=== PATIENT | female | born 1990 | race Caucasian/White ===

== ENCOUNTER → 2018-05-18 08:58 | Outpatient (CLI) | payer OTHER, SELFPAY ==
[2018-05-18 10:40] LABS: Absolute Lymphocyte Count 1.26 X10^3/ul (0.83-4.51); Absolute Neutrophil Count 5.8 X10^3/uL (2.0-7.7); Basophil# 0.03 X10^3/uL; Basophil% 0.4 % (0-1); Eosinophil# 0.15 X10^3/uL; Hematocrit 36.5 % (37-47); Hemoglobin 12.1 g/dl (12.0-15.0); Lymphocyte # 1.26 X10^3/ul (4.0); Lymphocyte % 16.6 % (19-41); Mean Corp Hgb Conc 33.2 g/gl (32-36); Mean Corpuscular Hgb 28.7 pg (27.0-32.0); Mean Corpuscular Volume 86.5 fL (81-99); Mean Platelet Vol. 12.1 fl (6.2-12.0); Monocyte# 0.35 X10^3/uL; Monocyte% 4.6 % (0-10); Neutrophil # 5.78 X10^3/uL (2.7-7.7); Neutrophil % 76.4 % (47-70); Platelet Count 176 K/mm3 (150-450); RBC Distribution Width CV 13.8 % (11.6-14.6); RBC Distribution Width SD 43.6 fl (35.1-43.9); Red Blood Count 4.22 M/mm3 (4.2-5.4); White Blood Count 7.6 K/mm3 (4.4-11.0)
[2018-05-18 10:41] LABS: POSITIVE COUNT NO; POSITIVE DIFFERENTIAL NO; POSITIVE MORPHOLOGY NO
[2018-05-18 11:05] LABS: Rubella IgG 57.7 IU/mL
[2018-05-18 21:28] LABS: Chlamydia Trachomatis by PCR Negative (Negative); Neisserai gonorrhoeae by PCR Negative (Negative); Probe Check PASS; Sample Adequacy Control PASS; Specimen Processing Control PASS
[2018-05-19 06:57] LABS: HEPATITIS B SURFACE AG Negative (Negative)
[2018-05-22 01:02] LABS: Rapid Plasmin Reagin (RPR) NONREACTIVE (NONREACTIVE)
[2018-05-22 11:32] LABS: HPV Reflexed? NOT INDICATED
== END ==
PROVIDERS: PCP Family Medicine; Visit Provider Obstetrics & Gynecology
DX: Z34.90 Encounter for supervision of normal pregnancy, unspecified, unspecified trimester (principal); Z12.4 Encounter for screening for malignant neoplasm of cervix
CPT/HCPCS: 36415; 85025; 86592; 86762; 86850; 86900; 87086; 87340; 87491; 87591; 88175; G0145

== ENCOUNTER → 2018-09-25 16:54 | Outpatient (CLI) | payer OTHER, SELFPAY ==
[2018-09-25 16:09] VITALS: BMI 25.2
[2018-09-25 17:34] LABS: Basophil# 0.03 X10^3/uL; Basophil% 0.2 % (0-1); Eosinophil# 0.21 X10^3/uL; Eosinophils% 1.7 % (0-5); Hematocrit 30.6 % (37-47); Hemoglobin 10.1 g/dl (12.0-15.0); Lymphocyte % 13.6 % (19-41); Mean Corpuscular Hgb 29.8 pg (27.0-32.0); Mean Corpuscular Volume 90.3 fL (81-99); Mean Platelet Vol. 11.4 fl (6.2-12.0); Monocyte# 0.53 X10^3/uL; Monocyte% 4.2 % (0-10); Neutrophil # 9.99 X10^3/uL (2.7-7.7); Platelet Count 155 K/mm3 (150-450); RBC Distribution Width CV 13.5 % (11.6-14.6); RBC Distribution Width SD 43.4 fl (35.1-43.9); Red Blood Count 3.39 M/mm3 (4.2-5.4); White Blood Count 12.5 K/mm3 (4.4-11.0)
[2018-09-25 17:45] LABS: POSITIVE COUNT NO; POSITIVE DIFFERENTIAL NO; POSITIVE MORPHOLOGY NO
[2018-09-25 17:51] LABS: Glucose Challenge Gest 1H 50g 182 mg/dL (70-140)
== END ==
PROVIDERS: Referring Provider Obstetrics & Gynecology; Visit Provider Obstetrics & Gynecology
DX: Z34.90 Encounter for supervision of normal pregnancy, unspecified, unspecified trimester (principal)
CPT/HCPCS: 36415; 82950; 85025; 86850; 86900

== ENCOUNTER 2018-10-22 17:00 | Outpatient (RCR) | payer OTHER, SELFPAY ==
[2018-09-25 16:09] VITALS: BMI 25.2
[2018-10-08 15:14] VITALS: BMI 25.2
== END 2018-11-05 23:59 ==
LOC: DC 17:00
PROVIDERS: PCP Family Medicine; Visit Provider Obstetrics & Gynecology
DX: O24.419 Gestational diabetes mellitus in pregnancy, unspecified control (principal)
CPT/HCPCS: 97802; G0108

== ENCOUNTER → 2018-11-23 17:00 | Outpatient (CLI) | payer OTHER, SELFPAY ==
[2018-11-23 16:04] VITALS: BMI 25.2
[2018-11-23 17:32] LABS: Absolute Lymphocyte Count 2.16 X10^3/ul (0.83-4.51); Absolute Neutrophil Count 8.5 X10^3/uL (2.0-7.7); Basophil# 0.03 X10^3/uL; Basophil% 0.2 % (0-1); Eosinophil# 0.34 X10^3/uL; Eosinophils% 2.8 % (0-5); Hematocrit 33.4 % (37-47); Hemoglobin 10.9 g/dl (12.0-15.0); Lymphocyte # 2.16 X10^3/ul (4.0); Lymphocyte % 17.9 % (19-41); Mean Corp Hgb Conc 32.6 g/gl (32-36); Mean Corpuscular Hgb 29.2 pg (27.0-32.0); Mean Corpuscular Volume 89.5 fL (81-99); Mean Platelet Vol. 11.7 fl (6.2-12.0); Monocyte# 0.95 X10^3/uL; Monocyte% 7.9 % (0-10); Neutrophil # 8.53 X10^3/uL (2.7-7.7); Neutrophil % 70.9 % (47-70); Platelet Count 144 K/mm3 (150-450); RBC Distribution Width CV 14.2 % (11.6-14.6); RBC Distribution Width SD 46.6 fl (35.1-43.9); Red Blood Count 3.73 M/mm3 (4.2-5.4); White Blood Count 12.1 K/mm3 (4.4-11.0)
[2018-11-23 17:33] LABS: POSITIVE COUNT NO; POSITIVE DIFFERENTIAL NO; POSITIVE MORPHOLOGY NO
== END ==
PROVIDERS: Nurse Practitioner Women's Health; Referring Provider Obstetrics & Gynecology; Visit Provider Obstetrics & Gynecology
DX: O99.013 Anemia complicating pregnancy, third trimester (principal); D64.9 Anemia, unspecified; Z3A.00 Weeks of gestation of pregnancy not specified
CPT/HCPCS: 36415; 85025; 87077; 87081; 87186

== ENCOUNTER → 2018-11-25 15:49 | Outpatient (CLI) | payer OTHER, SELFPAY ==
[2018-11-16 16:00] VITALS: BMI 25.2
[2018-11-23 16:04] VITALS: BMI 25.2
--- NOTE | 2018-11-25 15:51 | US_ITS ---
STUDY: SECOND AND THIRD TRIMESTER OBSTETRICAL ULTRASOUND - LIMITED REASON FOR EXAM: Female, 28 years old. Gestational diabetes LMP: PRIOR ULTRASOUND: None. TECHNIQUE: Transabdominal TECHNICAL QUALITY: Adequate. FINDINGS: There is a single intrauterine fetus. The fetus is in a cephalic presentation. There is demonstrated cardiac activity with a heart rate of 140 bpm. There is a normal amniotic fluid volume. The largest amniotic fluid pocket measures 3.1 x 2.4 cm. The amniotic fluid index (MARY) is 10.6 cm. The placenta is posterior and fundal There are Grade 2-3 placental changes. BIOMETRY: BPD: 9.1 cm: 37 weeks, 0 days HC: 32.4 cm: 36 weeks, 6 days AC: 32.03 cm: 36 weeks, 0 days FL: 7 cm: 36 weeks, 0 days Age by LMP: 36 weeks, 4 days. ALBARO by LMP: December 19 2018. age by prior US: weeks, days. ALBARO by prior US: . age by current US: 36 weeks, 4 days. ALBARO by current US: December 19, 2018. Estimated weight: 2861 grams, +/- 418 grams, 42 percentile. US/OB Limited With Biometrics IMPRESSION: Viable intrauterine gestation approximately 36-37 weeks gestational age demonstrated adequate growth Electronically Signed: Arsenio Shell MD at 22:57 EST , Service support ,
== END ==
PROVIDERS: Family Provider Family Medicine; PCP Family Medicine; Referring Provider Obstetrics & Gynecology; Visit Provider Obstetrics & Gynecology
DX: O24.419 Gestational diabetes mellitus in pregnancy, unspecified control (principal); Z3A.00 Weeks of gestation of pregnancy not specified
CPT/HCPCS: 76816

== ENCOUNTER 2018-12-21 07:00 | Inpatient (IN) | payer OTHER, SELFPAY ==
[2018-12-15 15:59] VITALS: BMI 26.9
[2018-12-21] MEDS: Lactated Ringers 1,000 ML 50 ML IV ×3 (07:33→23:43)
[2018-12-21 07:41] VITALS: BMI 28.3
[2018-12-21 07:46] LABS: Bedside Glucose 110 mg/dL (70-110)
[2018-12-21 07:58] LABS: Hematocrit 34.8 % (37-47); Hemoglobin 11.5 g/dl (12.0-15.0); Mean Corpuscular Volume 87.7 fL (81-99); Platelet Count 148 K/mm3 (150-450); RBC Distribution Width CV 14.2 % (11.6-14.6); RBC Distribution Width SD 45.8 fl (35.1-43.9); Red Blood Count 3.97 M/mm3 (4.2-5.4); White Blood Count 8.9 K/mm3 (4.4-11.0)
[2018-12-21 07:59] LABS: Scan Indicated on CBC? Y/N NO
[2018-12-21] MEDS: 0.9% Normal Saline 100 ML IV.SOLN. INTRA-UTER (08:06)
[2018-12-21] MEDS: Oxytocin 30 units/NS 500 ml 30 UNITS/500 ML IV.SOLN IV (08:10)
[2018-12-21 11:40] LABS: Bedside Glucose 89 mg/dL (70-110)
[2018-12-21 15:26] LABS: Bedside Glucose 70 mg/dL (70-110)
[2018-12-21 19:40] LABS: Bedside Glucose 101 mg/dL (70-110)
[2018-12-21] MEDS: 0.9% Saline Lock 10 ML Syringe IV (20:09)
[2018-12-21 20:46] LABS: Bedside Glucose 72 mg/dL (70-110)
[2018-12-21] MEDS: fentaNYL-bupivacaine (epidural) 100 ML BAG EPIDURAL (21:08)
[2018-12-21 21:35] LABS: Bedside Glucose 79 mg/dL (70-110)
[2018-12-21 22:35] LABS: Bedside Glucose 80 mg/dL (70-110)
[2018-12-21 23:51] LABS: Bedside Glucose 81 mg/dL (70-110)
--- NOTE | 2018-12-22 01:18 | HP.PCM_ITS ---
- Problem List (1) Anemia complicating , third trimester Status: Acute Comment: iron supplement, cbc q monthly (2) GBS (group B Streptococcus carrier), +RV culture, currently Status: Acute Comment: plan clindamycin (3) Gestational diabetes mellitus in third trimester Status: Acute Qualifiers: Comment: recommend growth us at 36 weeks, IOL by 40 weeks (4) Status: Acute Qualifiers: Comment: MFM Anatomy US-Normal, repeat US to complete anatomy was normal. 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 Is patient in pain?: No Allergies amoxicillin Allergy (Severe, Verified 12/15/18 15:58) rash Medications vitamin,calcium,bfqcxylu-lulo-rtuzm acid tablet 1 tab PO QDAY 05/18/18 [History Confirmed 12/08/18] blood sugar diagnostic strips See Dose Instructions .ROUTE .MEDSUPPLY #100 ea 09/26/18 [Rx Confirmed 12/08/18] blood-glucose meter See Dose Instructions .ROUTE .MEDSUPPLY #1 ea 09/26/18 [Rx Confirmed 12/08/18] Last Menstral Period: 03/23/18 Zika: Zika virus screening: Negative : No PFSH PFSH Family History Father Myocardial infarction Social History Smoking Status: Never smoker alcohol intake: never substance use type: does not use caffeine: Yes what type of physical activity do you participate in: walking seatbelt use: always do you feel safe at home: Yes additional social history: [place]- 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 OB Visit ALBARO Calculator Estimated Delivery Date 12/19/18 Based on LMP (certain) 03/14/18 Current WG 39w 3d Number 1 Expected Delivery Route/Plan Specific Issue/Plans flu vaccine: given tdap vaccine: given rhogam: given LARC form signed: declines labor support person: Villa pain management: epidural cut cord/dad catch: cord : yes PP control planned: [] discussed possible routes of delivery and associated risks: [] special requests: [] Initial Weight: 144 lb Date EGA Weight BP Urine Prot Glucose FHR FuHt Pres Mov CTX Dilation Effaced St Visit Note 05/18/18 9w 2d 144 lb 2 oz (+2 oz) 130/73 06/18/18 13w 5d 146 lb 4 oz (+2 lb 4 oz) 120/70 Negative Negative 160 no vb cramping, likely declines genetic screening, will check insurance 07/16/18 17w 5d 151 lb 6 oz (+7 lb 6 oz) 116/74 Negative Negative 150 no vb cramping 08/11/18 21w 3d 152 lb 4 oz (+8 lb 4 oz) 118/60 Negative Negative 155 22 Active absent no vb cramping 09/08/18 25w 3d 156 lb (+12 lb) 100/56 Negative Negative 150 25 Active absent no v blof good fm n oregular ctx 09/25/18 27w 6d 156 lb (+12 lb) 120/70 145 28 Active absent no vb lof good fm no regular ctx 10/08/18 29w 5d 158 lb (+14 lb) 122/78 Negative Negative 162 29 Active absent No VB, LOF. Reviewed BS: wnl. 10/20/18 31w 3d 161 lb (+17 lb) 116/58 Negative Negative 160 30 Active absent no vb lof good fm no regular ctx BS well controlled 11/03/18 33w 3d 165 lb (+21 lb) 118/70 Negative Negative 160 32 Active absent no vb lof good fm no regula rctx. BS reviewed 11/16/18 35w 2d 166 lb 6 oz (+22 lb 6 oz) 112/70 Negative Negative 150 35 Active absent no vb lof good fm no regular ctx bs well controlled check growth us next week 11/23/18 36w 2d 165 lb 2 oz (+21 lb 2 oz) 124/70 Negative Negative 148 36 Cephalic Active absent 0 -4 Doing well. BS well controlled. No VB, LOF 12/01/18 37w 3d 167 lb (+23 lb) 100/68 140 37 Cephalic Active absent no vb lof good fm n oregula cx bs reveiwed and WNL 12/08/18 38w 3d 167 lb (+23 lb) 120/78 Negative Negative 140 38 Cephalic Active absent 0.5 no vb lof good fm no regular ctx 12/15/18 39w 3d 169 lb 6 oz (+25 lb 6 oz) 132/80 Negative Negative 150 38 Cephalic Active absent 1 no vb lof good fm no regular ctx plan IOL friday 7 am pitocin and chow bulb Visit Notes Visit Date: 12/15/18 ??no vb lof good fm no regular ctx plan IOL friday 7 am pitocin and chow bulb ??Val Matias MD on 12/15/18 Visit Date: 12/08/18 ??no vb lof good fm no regular ctx ??Val Matias MD on 12/08/18 Visit Date: 12/01/18 ??no vb lof good fm n oregula cx bs reveiwed and WNL ??Val Matias MD on 12/01/18 Visit Date: 11/23/18 ??Doing well. BS well controlled. No VB, LOF ??IRINA Olivarez on 11/23/18 Visit Date: 11/16/18 ??no vb lof good fm no regular ctx bs well controlled check growth us next week ??Val Matias MD on 11/17/18 Visit Date: 11/03/18 ??no vb lof good fm no regula rctx. BS reviewed ??Val Matias MD on 11/03/18 Visit Date: 10/20/18 ??no vb lof good fm no regular ctx BS well controlled ??Val Matias MD on 10/20/18 Visit Date: 10/08/18 ??No VB, LOF. Reviewed BS: wnl. ??IRINA Olivarez on 10/08/18 Visit Date: 09/25/18 ??no vb lof good fm no regular ctx ??Val Matias MD on 09/25/18 Visit Date: 09/08/18 ??no v blof good fm n oregular ctx ??Val Matias MD on 09/08/18 Visit Date: 08/11/18 ??no vb cramping ??Val Matias MD on 08/11/18 Visit Date: 07/16/18 ??no vb cramping ??Val Matias MD on 07/16/18 Visit Date: 06/18/18 ??no vb cramping, likely declines genetic screening, will check insurance ??Val Matias MD on 06/18/18 Visit Date: 05/18/18 ??No visit notes to display ACOG First Trimester First Trimester: Desire for , Alcohol, Tobacco Cessation, Illicit/Recreational Drug/Substance Use, Intimate Partner Violence, Barriers to care, Unstable Housing, Communication Barriers, Environmental/Work Hazards, Anticipated Course of Care, Toxoplasmosis Precations, Use of Any medications, Sexual activity, Exercise, Dental Care, Sauna/Hot tub use, Seat Belt use, Childbirth classes/Hospital facilities, , Travel, Indications for US and Screening for Aneuploidy Diagnostics Diagnostics Labs Blood Type AB NEGATIVE 09/25/18 Antibody Screen NEGATIVE 09/25/18 Hct 33.4 % (37-47) L 11/23/18 Hgb 10.9 g/dl (12.0-15.0) L 11/23/18 Obstetrics Ultrasound 11/25/18 Glucose 1 Hr 50 gm 182 mg/dL (70-140) H 09/25/18 Details: HIV: Urine Culture: Sequential Screen: NIPT Screen: Results [id number] Office Urine Glucose Negative Last Edit by Suzette Shah on 12/15/18 16:01 Office Urine Protein Negative Last Edit by Suzette Shah on 12/15/18 16:01 Assessment & Plan Problems 1. TDAP and Rhogam given on 09/25 2. Rh negative state in antepartum period O26.899; Z67.91 rhogam given 3. GBS (group B Streptococcus carrier), +RV culture, currently O99.820 plan clindamycin 4. Diet controlled gestational diabetes mellitus (GDM) in third trimester O24.410 recommend growth us at 36 weeks, IOL by 40 weeks 5. Anemia complicating , third trimester O99.013 iron supplement, cbc q monthly 6. 39 weeks gestation of Z3A.39 MFM Anatomy US-Normal, repeat US to complete anatomy was normal. declined carrier, ntd, and genetic screening 7. Encounter for supervision of normal first in third trimester Z34.03 PRR ALBARO 12/19/18 girl Stefania [place] Weir Patient presents IOL, plan management for , pitocin/AROM after chow bulb. Pain management: plans epidural. GBS positive- give clindamycin. Management of any complications: bs q 4 hr latent and 1 hr active I have reviewed the [facility] and made any clinically relevant updates. Orders Orders: POC Urinalysis 2 Dip (Clinic) Today Coding Level of Care Code OB Routine Diagnoses TDAP and Rhogam given on 09/25 Rh negative state in antepartum period O26.899; Z67.91 GBS (group B Streptococcus carrier), +RV culture, currently O99.820 Diet controlled gestational diabetes mellitus (GDM) in third trimester O24.410 ??Gestational diabetes mellitus control: diet-controlled Anemia complicating , third trimester O99.013 39 weeks gestation of Z3A.39 ??Weeks of gestation: 39 weeks Encounter for supervision of normal first in third trimester Z34.03 ??Normal : normal first ??Trimester: third trimester
--- NOTE | 2018-12-22 01:38 | PCM.OB.VAG ---
- Problem List (1) Anemia complicating , third trimester Status: Acute Comment: iron supplement, cbc q monthly (2) GBS (group B Streptococcus carrier), +RV culture, currently Status: Acute Comment: plan clindamycin (3) Gestational diabetes mellitus in third trimester Status: Acute Qualifiers: Comment: recommend growth us at 36 weeks, IOL by 40 weeks (4) Status: Acute Qualifiers: Comment: MFM Anatomy US-Normal, repeat US to complete anatomy was normal. declined carrier, ntd, and genetic screening (5) Rh negative state in antepartum period Status: Acute Comment: rhogam given (6) Supervision of normal Status: Acute Qualifiers: Comment: PRR ALBARO 12/19/18 girl Stefania Villa (7) TDAP and Rhogam given on 09/25 Status: Acute Vaginal Delivery Maternal Presentation: Medically Indicated Induction iol [id number] Method of Induction: Pitocin, Cantrell Bulb Amniotic Membrane Rupture Type: Spontaneous Amniotic Fluid Description: Clear Final ALBARO: 12/19/18 Gestational age: 40 Weeks and 3 Days Date of Procedure: 12/22/18 Pre-Operative Diagnosis: [id number] Post-Operative Diagnosis: iol Surgery/ Procedure Performed: Spontaneous Vaginal Delivery Type of Anesthesia: Epidural Description of Procedure: Patient began pushing and delivered the head in the ANTON presentation. The head was delivered atraumatically . The anterior and posterior shoulders delivered without complication followed by the rest of the infant and the was placed on the maternal abdomen. Delayed cord clamping was employed for approximately 60 seconds. Cord was clamped and cut and gentle traction was applied to the cord and the placenta delivered spontaneously immediately following it was noted to be intact with three-vessel cord. The perineum and vagina were inspected and noted to have a second-degree perineal laceration that was repaired in the usual fashion. EBL was 500 cc, there was some uterine atony noted which was treated with bimanual massage and Methergine.. Patient and infant tolerated delivery well. Placenta Disposition: [facility] Estimated Blood Loss: 500 A gender: Female Episiotomy Description: None Laceration: Perineal Extension/lac, 2nd degree Medications given after delivery: IV Pitocin, IM Methergin Complications: - - Uterine atony
[2018-12-22 01:46] LABS: Bedside Glucose 101 mg/dL (70-110)
[2018-12-22 01:46] LABS: Bedside Glucose 109 mg/dL (70-110)
[2018-12-22 02:56] LABS: Bedside Glucose 99 mg/dL (70-110)
[2018-12-22 03:51] LABS: Bedside Glucose 99 mg/dL (70-110)
[2018-12-22] MEDS: Lactated Ringers 1,000 ML 50 ML IV (04:26)
[2018-12-22] MEDS: Oxytocin 30 units/NS 500 ml 30 UNITS/500 ML IV.SOLN 334 UNITS IV (05:01)
[2018-12-22] MEDS: Methylergonovine 0.2 MG/ML Ampul IM (05:04)
[2018-12-22] MEDS: Oxytocin 30 units/NS 500 ml 30 UNITS/500 ML IV.SOLN 167 UNITS IV (05:31)
[2018-12-22 05:56] LABS: Bedside Glucose 87 mg/dL (70-110)
[2018-12-22] MEDS: 0.9% Saline Lock 10 ML Syringe IV (06:35)
[2018-12-22 07:06] LABS: Bedside Glucose 85 mg/dL (70-110)
[2018-12-22] MEDS: Naproxen 250 MG Tablet PO ×2 (07:45→15:17)
[2018-12-22 08:00] VITALS: BP 110/60; PULSE 69; RESP 18; TEMP 36.9
[2018-12-22 12:00] VITALS: BP 117/73; PULSE 83; RESP 18; TEMP 36.9
[2018-12-22 15:48] VITALS: BP 108/70; PULSE 85; RESP 18; TEMP 36.8
[2018-12-22 19:45] VITALS: BP 108/66; PULSE 77; RESP 16; TEMP 36.8
[2018-12-22] MEDS: Dibucaine 30 GM Tube 1 APPLIC TOPICAL (20:00)
[2018-12-22] MEDS: Acetaminophen 500 MG Tablet 1000 MG PO (20:00)
[2018-12-23 00:25] VITALS: BP 100/54; PULSE 80; RESP 18; TEMP 37
[2018-12-23] MEDS: Naproxen 250 MG Tablet PO ×2 (00:34→09:03)
[2018-12-23 04:45] VITALS: BP 101/60; PULSE 70; RESP 16; TEMP 36.8
[2018-12-23 06:30] LABS: Bedside Glucose 60 mg/dL (70-110)
[2018-12-23 06:41] LABS: Bedside Glucose 83 mg/dL (70-110)
[2018-12-23 07:50] VITALS: BP 111/59; PULSE 89; RESP 14; TEMP 36.9; O2SAT 98
--- NOTE | 2018-12-23 08:17 | PCM.PN.OB ---
Subjective: doing well no complaints pain controlled no CP SOB N V ambulating well tolerating po lochia moderate, going well - Physical Exam General: Alert, Oriented x3 Abdomen: Soft, Non Tender, - - ff below u Vital Signs Temp Pulse Resp BP Pulse Ox 98.5 F 89 14 111/59 L 98 12/23/18 07:50 12/23/18 07:50 12/23/18 07:50 12/23/18 07:50 12/23/18 07:50 Oxygen Delivery Method Room Air Weight: 165 lb 5.547 oz Body Mass Index (BMI) 28.3 Intake and Output for Last 24 Hours 12/21/18 12/22/18 12/23/18 23:59 23:59 23:59 Intake Total 360 / 360 4181 / 4181 Output Total 1600 / 1600 1800 / 1800 Balance -1240 / -1240 2381 / 2381 Laboratory Tests Past 24 Hrs 12/22/18 06:55 Screen NEGATIVE Baby's Blood Type A POSITIVE Baby's PIERRE NEGATIVE POC Glucose 12/23/18 12/23/18 06:36 05:20 POC Glucose 83 60 L Medical Necessity - Tobacco Use Smoking Status: Never smoker Assessment/Plan All Active Problems (Last Reviewed 12/15/18 @ 15:58 by Suzette Shah) GBS (group B Streptococcus carrier), +RV culture, currently (Acute) TDAP and Rhogam given on 09/25 (Acute) Anemia complicating , third trimester (Acute) Gestational diabetes mellitus in third trimester (Acute) (Acute) Rh negative state in antepartum period (Acute) Supervision of normal (Acute) s/p PPD # 1 1. routine post delivery care 2. breast feeding- support given 3. rh negative 4. rubella immune 5. serum glucose WNL 6. home today
--- NOTE | 2018-12-23 08:19 | PCM.DCVAG ---
Additional Instructions: If you experience any of the following, contact your healthcare provider. Bleeding that soaks a pad every hour for 2 hours Fever 100.4 or higher Unrelieved incision or abdominal pain Swelling, redness, discharge or bleeding from your incision or episiotomy site Your incision begins to separate Problems urinating (including inability to urinate or burning while urinating). Visual changes Severe headache Flu-like symptoms Pain or redness in one of both of your breasts Pain, warmth, tenderness or swelling in your legs, especially the calf area Frequent nausea and vomiting Symptoms of depression or anxiety If you experience any of the following, call 911 or go to the nearest Emergency Room. Chest pain Problems breathing Seizure activity Partial or complete paralysis of a body part, slurred speech, weakness or drooping of the face, or a sudden inability to walk or hold your balance Allergies/Adverse Reactions: Allergies amoxicillin Allergy (Severe, Verified 12/21/18 08:42) rash Medications to take at Discharge vitamin,calcium,uuzmhryq-idai-qirib acid tablet 1 tab PO QDAY 05/18/18 blood-glucose meter See Dose Instructions .ROUTE .MEDSUPPLY #1 ea 09/26/18 Blood Sugar Diagnostic [Advanced Gluc Meter Test Strip] 0 .ROUTE .MEDSUPPLY 12/21/18 Ferrous Sulfate [Iron] 325 mg PO DAILY 12/21/18 Primary Care Physician: Marilee Faith [Primary Care Provider] - Test Results: Test results from this visit will be discussed in further detail at your follow-up appointment, if applicable.
--- NOTE | 2018-12-23 08:22 | DCINST_ITS ---
Additional Instructions: If you experience any of the following, contact your healthcare provider. * Bleeding that soaks a pad every hour for 2 hours * Fever 100.4 or higher * Unrelieved incision or abdominal pain * Swelling, redness, discharge or bleeding from your incision or episiotomy site * Your incision begins to separate * Problems urinating (including inability to urinate or burning while urinating). * Visual changes * Severe headache * Flu-like symptoms * Pain or redness in one of both of your breasts * Pain, warmth, tenderness or swelling in your legs, especially the calf area * Frequent nausea and vomiting * Symptoms of depression or anxiety If you experience any of the following, call 911 or go to the nearest Emergency Room. * Chest pain * Problems breathing * Seizure activity * Partial or complete paralysis of a body part, slurred speech, weakness or drooping of the face, or a sudden inability to walk or hold your balance Allergies/Adverse Reactions: Allergies amoxicillin Allergy (Severe, Verified 12/21/18 08:42) rash Medications to take at Discharge vitamin,calcium,wprmsvjg-wjhv-gadmc acid tablet 1 tab PO QDAY 05/18/18 blood-glucose meter See Dose Instructions .ROUTE .MEDSUPPLY #1 ea 09/26/18 Blood Sugar Diagnostic [Advanced Gluc Meter Test Strip] 0 .ROUTE .MEDSUPPLY 12/21/18 Ferrous Sulfate [Iron] 325 mg PO DAILY 12/21/18 Primary Care Physician: Marilee Faith [Primary Care Provider] - Test Results: Test results from this visit will be discussed in further detail at your follow- up appointment, if applicable.
== END 2018-12-23 14:10 | disposition home or self-care (01) | DRG 806 ==
PROVIDERS: Admitting Provider Obstetrics & Gynecology; Family Provider Family Medicine; PCP Family Medicine; Visit Provider Obstetrics & Gynecology
DX: O24.410 Gestational diabetes mellitus in pregnancy, diet controlled (principal); O36.0130 Maternal care for anti-D [Rh] antibodies, third trimester, not applicable or unspecified; Z37.0 Single live birth; O62.2 Other uterine inertia; O99.013 Anemia complicating pregnancy, third trimester; D64.9 Anemia, unspecified; O42.02 Full-term premature rupture of membranes, onset of labor within 24 hours of rupture; O70.1 Second degree perineal laceration during delivery; O99.824 Streptococcus B carrier state complicating childbirth; Z3A.40 40 weeks gestation of pregnancy
CPT/HCPCS: 59025; 59050; 82962; 85027; 85461; 86850; 86900; 90384; 99218; J7120; A4216; G0378; J2790

== ENCOUNTER → 2020-11-23 14:41 | Outpatient (CLI) | payer OTHER, SELFPAY ==
[2020-11-23 13:52] VITALS: BMI 26.8
[2020-11-23 15:27] LABS: Absolute Lymphocyte Count 1.54 X10^3/uL (0.83-4.51); Basophil# 0.04 X10^3/uL; Basophil% 0.4 % (0-1); Eosinophil# 0.19 X10^3/uL; Eosinophils% 2.1 % (0-5); Hematocrit 34.3 % (37-47); Hemoglobin 11.5 g/dL (12.0-15.0); Lymphocyte # 1.54 X10^3/ul (4.0); Lymphocyte % 16.9 % (19-41); Mean Corp Hgb Conc 33.5 g/dL (32-36); Mean Corpuscular Hgb 29.8 pg (27.0-32.0); Mean Corpuscular Volume 88.9 fL (81-99); Mean Platelet Vol. 11.7 fl (6.2-12.0); Monocyte# 0.33 X10^3/uL; Monocyte% 3.6 % (0-10); NRBC Flagged by Analyzer 0 % (0-5); Neutrophil # 6.96 X10^3/uL (2.7-7.7); Neutrophil % 76.6 % (47-70); Platelet Count 192 K/mm3 (150-450); RBC Distribution Width CV 13.3 % (11.6-14.6); RBC Distribution Width SD 43.1 fl (35.1-43.9); Red Blood Count 3.86 M/mm3 (4.2-5.4); White Blood Count 9.1 K/mm3 (4.4-11.0)
[2020-11-23 15:55] LABS: Glucose Challenge Gest 1H 50g 195 mg/dL (70-140)
[2020-11-23 17:35] LABS: Amphetamine Urine VISTA NEGATIVE (<1000 ng/mL); Barbiturate Urine VISTA NEGATIVE (< 200 ng/mL); Benzodiazepine Urine VISTA NEGATIVE (< 200 ng/mL); Cocaine Urine VISTA NEGATIVE (< 300 ng/mL); Ecstacy Urine VISTA NEGATIVE (< 500 ng/mL); Methadone Urine VISTA NEGATIVE (< 300 ng/mL); PCP Urine VISTA NEGATIVE (< 25 ng/mL); THC Urine VISTA NEGATIVE (< 50 ng/mL); Vista UDS pH Range 6
[2020-11-24 11:28] LABS: HIV - WCH Non-Reactive (Nonreactive); Hepatitis B Surface Antigen Non-Reactive (Nonreactive); Hepatitis C Antibody Non-Reactive (Nonreactive); Rubella IgG Reactive (Nonreactive)
[2020-11-27 09:25] LABS: Syphilis Antibodies Non-reactive
[2020-11-28 03:06] LABS: Chlamydia By Nucleic Acid AMP Negative (Negative)
[2020-11-28 09:17] LABS: Gonococcus By Nucleic Acid AMP Negative (Negative)
[2020-11-28 20:13] LABS: HPV APTIMA, High Risk Negative (Negative)
== END ==
PROVIDERS: PCP Family Medicine; Referring Provider Obstetrics & Gynecology; Visit Provider Obstetrics & Gynecology
DX: Z34.80 Encounter for supervision of other normal pregnancy, unspecified trimester (principal); Z86.32 Personal history of gestational diabetes
CPT/HCPCS: 36415; 80307; 82950; 85025; 86592; 86703; 86762; 86803; 86850; 86900; 86901; 87086; 87340; 87491; 87591; 87624; 88175; G0145

== ENCOUNTER → 2021-04-16 14:24 | Outpatient (CLI) | payer OTHER, SELFPAY ==
[2021-04-16 13:49] VITALS: BMI 25.9
[2021-04-16 14:45] LABS: Absolute Lymphocyte Count 1.65 X10^3/uL (0.83-4.51); Absolute Neutrophil Count 7.7 X10^3/uL (2.0-7.7); Basophil# 0.03 X10^3/uL; Basophil% 0.3 % (0-1); Eosinophil# 0.19 X10^3/uL; Eosinophils% 1.9 % (0-5); Lymphocyte # 1.65 X10^3/ul (0.83-4.51); Lymphocyte % 16.2 % (19-41); Mean Corp Hgb Conc 33.3 g/dL (32-36); Mean Corpuscular Hgb 29.4 pg (27.0-32.0); Mean Corpuscular Volume 88.2 fL (81-99); Mean Platelet Vol. 11.5 fl (6.2-12.0); Monocyte# 0.51 X10^3/uL; NRBC Flagged by Analyzer 0 % (0-5); Neutrophil # 7.73 X10^3/uL (2.7-7.7); Neutrophil % 76.1 % (47-70); Platelet Count 172 K/mm3 (150-450); RBC Distribution Width CV 13.7 % (11.6-14.6); RBC Distribution Width SD 44.4 fl (35.1-43.9); Red Blood Count 3.74 M/mm3 (4.2-5.4); White Blood Count 10.2 K/mm3 (4.4-11.0)
== END ==
PROVIDERS: PCP Family Medicine; Referring Provider Obstetrics & Gynecology; Visit Provider Obstetrics & Gynecology
DX: O26.899 Other specified pregnancy related conditions, unspecified trimester (principal); Z67.91 Unspecified blood type, Rh negative; Z3A.00 Weeks of gestation of pregnancy not specified
CPT/HCPCS: 36415; 85025; 86850; 86900; 86901

== ENCOUNTER → 2021-04-30 14:20 | Outpatient (CLI) | payer OTHER, SELFPAY ==
[2021-01-19 13:57] VITALS: BMI 25.7
[2021-04-16 13:49] VITALS: BMI 25.9
--- NOTE | 2021-04-30 14:26 | US_ITS ---
STUDY: SECOND AND THIRD TRIMESTER OBSTETRICAL ULTRASOUND - LIMITED REASON FOR EXAM: Female, 30 years old growth at 32 weeks (week of 04/29/21) LMP: 09/16/2020. PRIOR ULTRASOUND: None. TECHNIQUE: Transabdominal TECHNICAL QUALITY: Adequate. FINDINGS: There is a single intrauterine fetus. The fetus is in a breech presentation. There is demonstrated cardiac activity with a heart rate of 141 bpm. There is a normal amniotic fluid volume. The largest amniotic fluid pocket measures 3.95 cm. The amniotic fluid index (MARY) is 12.27 cm. The placenta is posterior in location and is not low lying. There are Grade 1 placental changes. The cervix measures 3.3 cm in length. BIOMETRY: BPD: 8.25 cm: 33 weeks, 1 days HC: 30.55 cm: 34 weeks, 0 days AC: 28.92 cm: 32 weeks, 3 days FL: 6.01 cm: 31 weeks, 1 days Age by LMP: 32 weeks, 2 days. ALBARO by LMP: 06/23/2021. age by current US: 32 weeks, 6 days. ALBARO by current US: 06/19/2021. Estimated weight: 1946 grams, +/- 292 grams, 40 percentile. US/OB Limited With Biometrics IMPRESSION: Single live intrauterine gestation with a mean gestational age of 32 weeks and 6 days. Electronically Signed: Tyree Geronimo MD at 20:29 EDT , Service support ,
== END ==
PROVIDERS: PCP Family Medicine; Referring Provider Obstetrics & Gynecology; Visit Provider Obstetrics & Gynecology
DX: O24.419 Gestational diabetes mellitus in pregnancy, unspecified control (principal); Z3A.32 32 weeks gestation of pregnancy
CPT/HCPCS: 76816

== ENCOUNTER → 2021-05-28 16:31 | Outpatient (CLI) | payer OTHER, SELFPAY ==
[2021-01-19 13:57] VITALS: BMI 25.7
--- NOTE | 2021-05-28 16:35 | US_ITS ---
STUDY: SECOND AND THIRD TRIMESTER OBSTETRICAL ULTRASOUND - LIMITED REASON FOR EXAM: Female, 30 years old. MARY only. LMP: 09/16/2020. PRIOR ULTRASOUND: 04/30/2021. TECHNIQUE: Transabdominal TECHNICAL QUALITY: Adequate. FINDINGS: There is a single intrauterine fetus. The fetus is in a cephalic presentation. There is demonstrated cardiac activity with a heart rate of 148 bpm. There is a normal amniotic fluid volume. The largest amniotic fluid pocket measures 4.08 cm. The amniotic fluid index (MARY) is 9.2 cm. The placenta is fundal and posterior and not low-lying. There are Grade 2 placental changes. The cervix measures 3 cm in length. Age by LMP: 36 weeks, 2 days. ALBARO by LMP: 06/23/2021. age by prior US: 36 weeks, 6 days. ALBARO by prior US: 06/19/2021. US/OB Limited (No Biometrics) IMPRESSION: 1. MARY of 9.2 cm. 2. Single intrauterine in a vertex presentation. 3. heart rate 148 bpm. 4. Fundal and posterior grade 2 placenta. Electronically Signed: Kirit Laughlin DO at 17:57 EDT Tel [phone], Service support ,
== END ==
PROVIDERS: Referring Provider Obstetrics & Gynecology; Visit Provider Obstetrics & Gynecology
DX: O24.419 Gestational diabetes mellitus in pregnancy, unspecified control (principal); Z3A.00 Weeks of gestation of pregnancy not specified
CPT/HCPCS: 76815

== ENCOUNTER → 2021-05-28 17:14 | Outpatient (CLI) | payer OTHER, SELFPAY | PROVIDERS: Visit Provider Obstetrics & Gynecology | DX: Z34.90 Encounter for supervision of normal pregnancy, unspecified, unspecified trimester (principal) | CPT/HCPCS: 87081 ==

== ENCOUNTER 2021-06-19 08:08 | Inpatient (IN) | payer OTHER, SELFPAY ==
[2021-06-19] VITALS (57 sets, daily range): BP systolic 103–134; BP diastolic 52–83; PULSE 52–107; TEMP 36.3–36.9; O2SAT 83–100; BMI 28.2
--- NOTE | 2021-06-19 07:12 | HP.PCM_ITS ---
History and Physical Date of Admission: 06/19/21 [facility] 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 Is patient in pain?: No Allergies amoxicillin Allergy (Severe, Verified 06/14/21 15:50) rash Medications ferrous sulfate 325 mg (65 mg iron) tablet 325 mg PO DAILY 11/14/20 [History Confirmed 06/14/21] multivitamin no.47-iron fum 27 mg-folate no.1 1 mg-dha 300 mg capsule cap PO 11/14/20 [History Confirmed 06/14/21] blood sugar diagnostic #150 each 12/19/20 [Rx Confirmed 06/14/21] Last Menstral Period: 09/16/20 Zika: Zika virus screening: Negative : No PFSH PFSH Medical History History of gestational diabetes Family History Father Myocardial infarction Social History adopted: No household members: family housing: house number of children: 1 current occupational status: employed Smoking Status: Never smoker second hand exposure: No alcohol intake: never substance use type: does not use caffeine: Yes what type of physical activity do you participate in: walking seatbelt use: always do you feel safe at home: Yes additional social history: 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 Pregancy History 2 Elective abortions Hx Para 1 Spontaneous abortions Hx # Term Pregnancies Ectopic pregnancies Hx # Pregnancies Multiple births # of living children 1 Past Pregnancies Del. Date Name GA/Weeks Outcome Route Bth Weight Gen Labor Lgth Anesthesia Del Locatn Provider FOB 12/22/18 ALLY 40 live - full term 7lbs 6oz Female 4.5 hours epidural [facility] Delivery Date: 12/22/18 GDMA; 2nd degree laceration; uterine atony Wendy Loo HPI 38WK OB / NST Details: TIM MEDINA is a 30 year old who presents for IOL sec GDMA1 controlled OB Visit ALBARO Calculator Estimated Delivery Date Method Current WG Current Estimate 06/23/21 LMP (Certain) 39w 1d Other Estimates 06/27/21 Ultrasound #1 38w 4d Expected Delivery Route/Plan Labor Preferences- CB/BF classes: no labor support person: Villa labor intervention preferences: [] pain management options preferred: epidural cut cord/dad catch: cord : yes PP control planned: condom discussed possible routes of delivery and associated risks: [] special requests: [] Specific Issue/Plans flu vaccine: given tdap vaccine: given rhogam: given LARC form signed: yes Problem list reviewed and updated with the most current plan of care details and appropriate orders placed. Relevant counseling for the gestational age provided. Continue routine care and follow up unless otherwise noted in visit notes/problem list details Initial Weight: 165 lb Date EGA Weight BP Urine Prot Glucose FHR FuHt Pres Dilation Effaced St Visit Note 11/23/20 9w 5d 166 lb 4 oz (+1 lb 4 oz) 130/84 185 SM- CRL cons with Lmp SM- CRL 2cm cons with Lmp 12/22/20 13w 6d 162 lb 6 oz (-2 lb 10 oz) 128/68 Negative Negative 168 GP - no cramping or bleeding. Anatomy scan ordered. 01/19/21 17w 6d 162 lb (-3 lb) 110/82 Negative Negative 150 SM- BS well controlled with diet. no vb crakping SM- BS well controlled with diet. no vb cramping 02/12/21 21w 2d 163 lb 8 oz (-1 lb 8 oz) 110/68 Negative Negative 155 GP - no ctx, LOF, VB, DFM. BGTs controlled. Awaiting anatomy report, but was told normal aside from need f/u spine views 03/12/21 25w 2d 163 lb (-2 lb) 124/70 Negative Negative 155 25 SM- no vb lof good fm no regular ctx. cbc and t and s rhrogam next visit. SM- no vb lof good fm no regular ctx. cbc and t and s rhrogam next visit. 03/29/21 27w 5d 167 lb (+2 lb) 120/84 Negative Negative 150 27 Sm- no vb lof good fm no regular ctx going [place] next [place], [place]. 04/16/21 30w 2d 169 lb (+4 lb) 120/74 Negative Negative 145 30 SM- no vb lof good fm no regular ctx. t and s and rhogam today 04/30/21 32w 2d 171 lb (+6 lb) 140 32 SM- no vb lof good fm no regular ctx 05/07/21 33w 2d 178 lb (+13 lb) 118/64 140 MH-NST only reactive 05/14/21 34w 2d 176 lb 8 oz (+11 lb 8 oz) 112/68 Negative Negative 145 MH-No Vb, LOF. Good FM. Reactive NST. No CTX. Sugars well controlled 05/21/21 35w 2d 177 lb 7 oz (+12 lb 7 oz) 120/74 Negative Negative MH NST only reactive 05/28/21 36w 2d 178 lb (+13 lb) 120/82 Negative Negative 140 SM- BS WNL no vb lof good fm no reulga rctx gbs done 06/04/21 37w 2d Negative Negative 130 SM- BS controlled no vb lof good fm no regular ctx 06/14/21 38w 5d 180 lb (+15 lb) 98/62 ACOG First Trimester First Trimester: Desire for , Alcohol, Tobacco Cessation, Illicit/Recreational Drug/Substance Use, Intimate Partner Violence, Barriers to care, Unstable Housing, Communication Barriers, Environmental/Work Hazards, Anticipated Course of Care, Toxoplasmosis Precations, Use of Any medications, Sexual activity, Exercise, Dental Care, Sauna/Hot tub use, Seat Belt use, Childbirth classes/Hospital facilities, Travel, Indications for Ul trasound and Screening for Aneuploidy; Discussed Second Trimester Second Trimester: Signs and Symptoms of Labor, Selecting a care provider, Reproductive Life Planning & Contreception, Care Planning, Depression/Anxiety and Intimate Partner Violence; Discussed Tobacco Cessation Third Trimester Third Trimester: Pain Management Plans, Labor support person(s), Immediate Larc, Circumcision preference and Signs and Symptoms of Preeclampsia Diagnostics Diagnostics Diagnostics: No Data to Display Details: HIV: Urine Culture: Sequential Screen: NIPT Screen: ROS Const Reports system reviewed and no additional complaints, except as documented Card Reports system reviewed and no additional complaints, except as documented Resp Reports system reviewed and no additional complaints, except as documented GI Reports system reviewed and no additional complaints, except as documented and Reports nausea Reports system reviewed and no additional complaints, except as documented Musc Reports system reviewed and no additional complaints, except as documented Exam Const General: cooperative, healthy appearing, comfortable and anxious HENMT Head: normal to inspection Nose: external nose normal Face and sinus: normal facial exam Neck Neck: normal visual inspection, full ROM and no lymphadenopathy Thyroid: thyroid normal Chest Chest palpation & inspection: normal inspection of the chest Resp Effort & Inspection: normal respiratory effort GI Inspection: normal to inspection Palpation: soft and other (gravid uterus) Other: infant vertex and appropriate size for gestational age Other: Cervical Exam: Extrem General: pedal edema Office Procedures Non-stress Test Non-Stress Test Indications for Monitoring: Yes diabetes Heart Rate Baseline: 130 Heart Rate Variability: moderate Movement: Present Heart Rate Accelerations: Present Decelerations: Absent Contractions: Absent Impression: Yes Reactive Non-Stress Test Category 1 Coding Level of Care Code OB Routine Diagnoses Gestational diabetes O24.410 Gestational diabetes mellitus control: diet-controlled Trimester: second trimester Supervision of other normal Z34.80 Rh negative status during O26.893; Z67.91 Trimester: third trimester Z3A.36 Weeks of gestation: 36 weeks CPT Codes Non-Stress Test (62316) Assessment and Plan Assessment and Plan (1) Gestational diabetes: Status: Acute Qualifiers: Gestational diabetes mellitus control: diet-controlled Trimester: second trimester Qualified Code(s): O24.410 - Gestational diabetes mellitus in , diet controlled Comment: referred to Dr. Glover, diet controlled. declined echo, growth US nl Orders: Orders: OB NST 06/14/21 Plan - Dr. Val Matias MD: plan IOL (2) Supervision of other normal : Status: Acute Comment: PRR ALBARO: 06/23/21 Boy! Tyler PC: Ally Spouse: Villa (3) Rh negative status during : Status: Acute Qualifiers: Trimester: third trimester Qualified Code(s): O26.893 - Other specified related conditions, third trimester; Z67.91 - Unspecified blood type, Rh negative Comment: AB neg RHOGAM at 28 weeks and PRN (4) : Status: Acute Qualifiers: Weeks of gestation: 36 weeks Qualified Code(s): Z3A.36 - 36 weeks gestation of Comment: declines genetics and carrier. Anatomy normal. Followup nl. GBS NEG Plan Details Other Orders: Orders: POC Urinalysis 2 Dip (Clinic) 06/14/21
[2021-06-19] MEDS: Lactated Ringers 1,000 ML 50 ML IV (08:55)
[2021-06-19 09:24] LABS: Absolute Lymphocyte Count 1.24 X10^3/uL (0.83-4.51); Absolute Neutrophil Count 7.6 X10^3/uL (2.0-7.7); Basophil# 0.03 X10^3/uL; Basophil% 0.3 % (0-1); Eosinophil# 0.06 X10^3/uL; Eosinophils% 0.6 % (0-5); Hematocrit 33.8 % (37-47); Hemoglobin 11.1 g/dL (12.0-15.0); Lymphocyte # 1.24 X10^3/ul (0.83-4.51); Lymphocyte % 13.1 % (19-41); Mean Corp Hgb Conc 32.8 g/dL (32-36); Mean Corpuscular Volume 88.3 fL (81-99); Mean Platelet Vol. 12.3 fl (6.2-12.0); Monocyte# 0.44 X10^3/uL; Monocyte% 4.7 % (0-10); NRBC Flagged by Analyzer 0 % (0-5); Neutrophil # 7.64 X10^3/uL (2.7-7.7); Neutrophil % 80.9 % (47-70); Platelet Count 149 K/mm3 (150-450); RBC Distribution Width CV 14.3 % (11.6-14.6); RBC Distribution Width SD 45.9 fl (35.1-43.9); Red Blood Count 3.83 M/mm3 (4.2-5.4); White Blood Count 9.5 K/mm3 (4.4-11.0)
[2021-06-19 09:51] LABS: Bedside Glucose 98 mg/dL (70-110)
[2021-06-19] MEDS: 0.9% Normal Saline Single 100 ML IV.SOLN. INTRA-UTER (09:52)
[2021-06-19] MEDS: Oxytocin 30 units/NS 500 ml 30 UNITS/500 ML IV.SOLN IV (10:06)
[2021-06-19 11:11] LABS: Bedside Glucose 71 mg/dL (70-110)
[2021-06-19 15:16] LABS: Bedside Glucose 69 mg/dL (70-110)
[2021-06-19] MEDS: Lactated Ringers 500 ML 999 ML IV (17:12)
[2021-06-19 17:26] LABS: Bedside Glucose 73 mg/dL (70-110)
[2021-06-19] MEDS: fentaNYL-bupivacaine (epidural) 100 ML BAG EPIDURAL ×2 (18:02→21:49)
[2021-06-19 18:31] LABS: Bedside Glucose 68 mg/dL (70-110)
[2021-06-19] MEDS: Lactated Ringers 1,000 ML 200 ML IV (20:40)
[2021-06-19 20:56] LABS: Bedside Glucose 59 mg/dL (70-110)
[2021-06-19 20:56] LABS: Bedside Glucose 79 mg/dL (70-110)
[2021-06-19 22:41] LABS: Bedside Glucose 84 mg/dL (70-110)
[2021-06-19 22:41] LABS: Bedside Glucose 106 mg/dL (70-110)
[2021-06-20] VITALS (32 sets, daily range): BP systolic 103–124; BP diastolic 57–81; PULSE 71–100; RESP 14–19; TEMP 35.9–37.2; O2SAT 95–100
[2021-06-20] MEDS: Oxytocin 30 units/NS 500 ml 30 UNITS/500 ML IV.SOLN 334 UNITS IV (00:02)
--- NOTE | 2021-06-20 00:06 | EX.PCM.OBRPT ---
Assessment & Plan (1) Gestational diabetes: QUALIFIERS: Gestational diabetes mellitus control: diet-controlled Trimester: second trimester Qualified Code(s): O24.410 - Gestational diabetes mellitus in , diet controlled COMMENT: referred to Dr. Glover, diet controlled. declined echo, growth US nl (2) Supervision of other normal : COMMENT: PRR ALBARO: 06/23/21 Boy! Tyler PC: Mckayla Spouse: Villa (3) Rh negative status during : QUALIFIERS: Trimester: third trimester Qualified Code(s): O26.893 - Other specified related conditions, third trimester; Z67.91 - Unspecified blood type, Rh negative COMMENT: AB neg RHOGAM at 28 weeks and PRN (4) : QUALIFIERS: Weeks of gestation: 36 weeks Qualified Code(s): Z3A.36 - 36 weeks gestation of COMMENT: declines genetics and carrier. Anatomy normal. Followup nl. GBS NEG (5) Vaginal delivery: COMMENT: SM IOL GDMA1 boy Tyler Maternal Data Information ALBARO Calculator Estimated Delivery Date Method Current WG Current Estimate 06/23/21 LMP (Certain) 39w 4d Other Estimates 06/27/21 Ultrasound #1 39w 0d Vaginal Delivery Operative Information Date of Procedure: 06/20/21 Pre-Operative Diagnosis: IOL Post-Operative Diagnosis: same Surgery / Procedure Performed: Spontaneous Vaginal Delivery Type of Anesthesia: Epidural Special Medications: none Estimated Blood Loss: 100 Fluids Replaced: crystalloid Findings Description of Procedure: Patient began pushing and delivered the head in the ANTON presentation. The head was delivered atraumatically and a loose nuchal x1 was identified and reduced over the 's head prior to shoulder delivery. The anterior and posterior shoulders delivered without complication followed by the rest of the infant and the infant was placed on the maternal abdomen. Delayed cord clamping was employed for approximately 60 seconds. Cord was clamped and cut and gentle traction was applied to the cord and the placenta delivered spontaneously immediately following it was noted to be intact with three-vessel cord. The perineum and vagina were inspected and noted to have a second-degree perineal laceration repaired in the usual fashion with 3-0 Vicryl Rapide. EBL was 100 cc. Patient and tolerated delivery well. Presentation: ANTON Amniotic Membrane Rupture Type: Artificial Amniotic Fluid Description: Clear Placental Delivery Description: Spontaneous Placenta Disposition: [facility] Cord Vessel Description: 3 Vessels Cord Entanglement: None Delayed Cord Clamping: Yes Post Vaginal Delivery Medications Given After Delivery: IV Pitocin Episiotomy Description: None Laceration: Perineal Extension/lac and 2nd degree Complication Complications: None Procedures Urinary/Genital [id number]: [id number] Vaginal Delivery [facility]
--- NOTE | 2021-06-20 00:08 | PCM.DC ---
Discharge Instructions Diet Discharge Diet: No restrictions Activity Discharge Activity: Return to Normal Activity, May Not Drive (while taking narcotic pain medications.) and May Shower May resume sexual activity in: 4-6 weeks Dressing / Incision Call your doctor if your incision/area has: Continuous Slow Oozing, Sudden Increased Bleeding, Increased Pain/ Swelling, Increased Redness and Foul Smelling Discharge Follow Up Care Please Follow Up With: Val Matias MD When: Call [phone] to make an appointment with your doctor in 6 weeks. If you had elevated blood pressure or 4th degree laceration, you will need to be seen in 2 weeks. Test Results: Test results from this visit will be discussed in further detail at your follow-up appointment, if applicable. Discharge Plan Admission Admit Date/Time: 06/19/21 08:08 Primary Reason for Your Visit: vaginal delivery Attending Provider: Val Matias Primary Care Provider: Care Physician,Jenna Primary Discharge Orders/Prescriptions Prescriptions: No Action PNV-DHA 27 mg iron-1 mg -300 mg capsule 1 cap PO DAILY RF: 0 ferrous sulfate [Feosol] 325 mg (65 mg iron) tablet 325 mg PO DAILY RF: 0 (DME) Advanced Gluc Meter Test Strip Strip See Dose Instructions .Route .MEDSUPPLY Qty: 150 RF: 6 Referrals / Follow Up: Care Physician,No Primary [Primary Care Provider] - Disposition Disposition (needs filled in before D/C Order can be placed): Home, Self Care
[2021-06-20] MEDS: 0.9% Saline Lock 10 ML Syringe IV (02:54)
[2021-06-20 07:01] LABS: Bedside Glucose 87 mg/dL (70-110)
[2021-06-20] MEDS: Acetaminophen 500 MG Tablet 1000 MG PO (08:13)
--- NOTE | 2021-06-20 08:34 | PN.OBGYN_ITS ---
Subjective Subjective Patient doing well without complaints. Tolerating PO. Ambulating and voiding without difficulty. Breast feeding well. Denies chest pain, shortness of breath, calf pain/swelling, fevers, chills, lightheadedness. Objective Data Objective Data Vital Signs: Vital Signs Temp Pulse Resp BP Pulse Ox 97.8 F 80 18 108/66 100 06/20/21 04:55 06/20/21 04:55 06/20/21 04:55 06/20/21 04:55 06/20/21 02:06 Oxygen Delivery Method Room Air Weight: 175 lb Body Mass Index (BMI) 28.2 Intake & Output: Intake and Output for Last 24 Hours 06/18/21 06/19/21 06/20/21 23:59 23:59 23:59 Intake Total 6252.20 / 6252.20 2473.33 / 2473.33 Output Total 5350 / 5350 2600 / 2600 Balance 902.20 / 902.20 -126.67 / -126.67 Lab / Micro Data Result Diagrams: 06/19/21 08:55 Labs: Laboratory Results - last 24 hr 06/19/21 08:55: WBC 9.5, RBC 3.83 L, Hgb 11.1 L, Hct 33.8 L, MCV 88.3, MCH 29.0, MCHC 32.8, RDW Std Deviation 45.9 H, RDW Coeff of Christine 14.3, Plt Count 149 L, MPV 12.3 H, Immature Gran % (Auto) 0.400, Neut % (Auto) 80.9 H, Lymph % (Auto) 13.1 L, [place] % (Auto) 4.7, Eos % (Auto) 0.6, Baso % (Auto) 0.3, Absolute Neuts (auto) 7.6, Absolute Lymphs (auto) 1.24, Nucleated RBC % 0 06/19/21 08:55: Blood Type AB NEGATIVE, Antibody Screen Not Reportable 06/19/21 08:55: Antibody Screen NEGATIVE 06/19/21 09:44: POC Glucose 98 06/19/21 11:04: POC Glucose 71 06/19/21 14:56: POC Glucose 69 L 06/19/21 17:19: POC Glucose 73 06/19/21 18:26: POC Glucose 68 L 06/19/21 19:30: POC Glucose 79 06/19/21 20:38: POC Glucose 59 L 06/19/21 21:27: POC Glucose 106 06/19/21 22:33: POC Glucose 84 06/20/21 06:42: POC Glucose 87 Micro: Microbiology 06/19/21 08:25 Nasal Secretion SARS-CoV-2 Antigen (Rapid) - Final ROS Constitutional Constitutional: Denies fever(s) Cardiovascular Cardiovascular: Denies chest pain, dyspnea or lightheadedness Gastrointestinal Gastrointestinal: Reports abdominal pain; Denies constipation or diarrhea Neurologic Neurologic: Denies dizziness or headache(s) Physical Exam Const alert, oriented x3, no apparent distress, average body habitus, healthy appearing and well nourished HEENT normocephalic Head and Scalp: atraumatic Eyes PERRL and EOMs intact bilaterally Neck full ROM Lymph Lymphatic: no lymphadenopathy noted Resp normal respiratory effort, no retractions and no use of accessory muscles Cardio regular rate GI soft to palpation, non-tender and non-distended Palpation: other Other Details: fundus firm Extremity normal to inspection and no clubbing, cyanosis or edema Skin no rashes or lesions noted Neuro no focal motor deficits and no sensory deficits noted Psych mental status grossly normal, affect normal and speech normal Assessment & Plan (1) Vaginal delivery: COMMENT: SM IOL GDMA1 boy Tyler PLAN: s/p PPD # 1 1. routine post delivery care 2. breast feeding- support given 3. rh positive 4. rubella immune 5. GDMA1 - fasting BGT nl
[2021-06-20] MEDS: Naproxen 500 MG Tablet PO (18:00)
--- NOTE | 2021-06-20 22:38 | NURSING ---
geovanny RN gave bath demonstration per bedside report earlier.
[2021-06-21 01:05] VITALS: BP 110/70; PULSE 69; RESP 22; TEMP 36.6
[2021-06-21 04:05] VITALS: BP 107/60; PULSE 72; RESP 16; TEMP 36.3
--- NOTE | 2021-06-21 08:02 | PCM.PN.OB ---
Subjective Subjective Patient doing well without complaints. Tolerating PO. Ambulating and voiding without difficulty. feeding well. Denies chest pain, shortness of breath, calf pain/swelling, fevers, chills, lightheadedness. Objective Data Objective Data Vital Signs: Vital Signs Temp Pulse Resp BP Pulse Ox 97.4 F L 72 16 107/60 97 06/21/21 04:05 06/21/21 04:05 06/21/21 04:05 06/21/21 04:05 06/20/21 08:00 Oxygen Delivery Method Room Air Weight: 175 lb Body Mass Index (BMI) 28.2 Intake & Output: Intake and Output for Last 24 Hours 06/19/21 06/20/21 06/21/21 23:59 23:59 23:59 Intake Total 6252.20 / 6252.20 2473.33 / 2473.33 Output Total 5350 / 5350 2600 / 2600 Balance 902.20 / 902.20 -126.67 / -126.67 Lab / Micro Data Result Diagrams: 06/19/21 08:55 Micro: Microbiology 06/19/21 08:25 Nasal Secretion SARS-CoV-2 Antigen (Rapid) - Final ROS Constitutional Constitutional: Reports systems reviewed and no addt'l complaints, except as documented Cardiovascular Cardiovascular: Reports systems reviewed and no addt'l complaints, except as documented Respiratory/Chest Respiratory/Chest: Reports systems reviewed and no addt'l complaints, except as documented Gastrointestinal Gastrointestinal: Reports systems reviewed and no addt'l complaints, except as documented Physical Exam Const alert, oriented x3 and no apparent distress HEENT Head and Scalp: atraumatic Resp normal respiratory effort GI soft to palpation and non-tender Bimanual Exam - Vag & Uterus: uterus non-tender Uterus Palpation: uterus fundus firm (below Umbilicus) Assessment & Plan (1) Vaginal delivery: COMMENT: SM IOL GDMA1 boy Tyler (2) Rh negative status during : QUALIFIERS: Trimester: third trimester Qualified Code(s): O26.893 - Other specified related conditions, third trimester; Z67.91 - Unspecified blood type, Rh negative COMMENT: AB neg RHOGAM at 28 weeks and PRN PLAN: routine care rhogam PRN fu 6 weeks 2 hour GCT
[2021-06-21] MEDS: Naproxen 500 MG Tablet PO (08:05)
[2021-06-21 08:07] VITALS: BP 115/67; PULSE 77; RESP 16; TEMP 36.5
--- NOTE | 2021-06-25 16:40 | NURSING ---
Follow up call done, mother feels things are going very well , doesn't have any questions or concerns, going well. was satisfied with her care.
== END 2021-06-21 11:30 | disposition home or self-care (01) | DRG 807 ==
PROVIDERS: Admitting Provider Obstetrics & Gynecology; Referring Provider Obstetrics & Gynecology; Visit Provider Obstetrics & Gynecology
DX: O24.420 Gestational diabetes mellitus in childbirth, diet controlled (principal); Z37.0 Single live birth; Z3A.39 39 weeks gestation of pregnancy; O26.893 Other specified pregnancy related conditions, third trimester; O69.81X0 Labor and delivery complicated by cord around neck, without compression, not applicable or unspecified; O70.1 Second degree perineal laceration during delivery
CPT/HCPCS: 59025; 59050; 82962; 85025; 86850; 86900; 86901; 87426; 99218; J7120; A4216; G0378

== ENCOUNTER → 2021-08-27 15:08 | Outpatient (CLI) | payer OTHER, SELFPAY ==
[2021-08-27 15:23] LABS: Absolute Lymphocyte Count 1.94 X10^3/uL (0.83-4.51); Absolute Neutrophil Count 4.2 X10^3/uL (2.0-7.7); Basophil# 0.03 X10^3/uL; Basophil% 0.4 % (0-1); Eosinophil# 0.13 X10^3/uL; Eosinophils% 1.9 % (0-5); Hematocrit 35.3 % (37-47); Hemoglobin 11.7 g/dL (12.0-15.0); Lymphocyte # 1.94 X10^3/ul (0.83-4.51); Mean Corp Hgb Conc 33.1 g/dL (32-36); Mean Corpuscular Hgb 28.5 pg (27.0-32.0); Mean Corpuscular Volume 86.1 fL (81-99); Mean Platelet Vol. 11.4 fl (6.2-12.0); Monocyte# 0.35 X10^3/uL; Monocyte% 5.2 % (0-10); NRBC Flagged by Analyzer 0 % (0-5); Neutrophil # 4.23 X10^3/uL (2.7-7.7); Neutrophil % 63.2 % (47-70); Platelet Count 202 K/mm3 (150-450); RBC Distribution Width CV 13.9 % (11.6-14.6); RBC Distribution Width SD 43.8 fl (35.1-43.9); White Blood Count 6.7 K/mm3 (4.4-11.0)
[2021-08-27 15:56] LABS: hCG Titer Quant., Serum < 1 mIU/mL (1-3)
== END ==
PROVIDERS: Referring Provider Obstetrics & Gynecology; Visit Provider Obstetrics & Gynecology
DX: N93.9 Abnormal uterine and vaginal bleeding, unspecified (principal); Z13.29 Encounter for screening for other suspected endocrine disorder
CPT/HCPCS: 36415; 84443; 84702; 85025

== ENCOUNTER → 2021-08-31 14:04 | Outpatient (CLI) | payer OTHER, SELFPAY ==
--- NOTE | 2021-08-31 14:04 | US_ITS ---
STUDY: ULTRASOUND OF THE FEMALE PELVIS - COMPLETE REASON FOR EXAM: Female, 30 years old. Irregular heavy bleeding. LMP: 08/18/2021 TECHNIQUE: Transabdominal and Transvaginal TECHNICAL QUALITY: Adequate. COMPARISON: None. FINDINGS: The uterus is retroflexed and is in a midline position. The uterus measures 6.4 x 4.8 x 3.6 cm. Normal uterine cervix. The endometrium measures 4 mm in thickness, and is hyperechoic. There is no demonstrated endometrial mass. The right ovary is visualized. The right ovary measures 2.7 x 1.9 x 2.3 cm. There is no right ovarian cyst or ovarian mass. There is no visualized right adnexal mass or complex lesion. There is normal arterial and normal venous vascularity. The left ovary is visualized. The left ovary measures 2.1 x 1.7 x 1.8 cm. There is no left ovarian cyst or ovarian mass. There is no visualized left adnexal mass or complex lesion. There is normal arterial and normal venous vascularity. There is mild fluid in the cul-de-sac. US/Transvaginal Non- IMPRESSION: Unremarkable examination. Electronically Signed: Aj Mercer, at 13:22 EST Tel , Service support ,
--- NOTE | 2021-08-31 14:04 | US_ITS ---
STUDY: ULTRASOUND OF THE FEMALE PELVIS - COMPLETE REASON FOR EXAM: Female, 30 years old. Irregular heavy bleeding. LMP: 08/18/2021 TECHNIQUE: Transabdominal and Transvaginal TECHNICAL QUALITY: Adequate. COMPARISON: None. FINDINGS: The uterus is retroflexed and is in a midline position. The uterus measures 6.4 x 4.8 x 3.6 cm. Normal uterine cervix. The endometrium measures 4 mm in thickness, and is hyperechoic. There is no demonstrated endometrial mass. The right ovary is visualized. The right ovary measures 2.7 x 1.9 x 2.3 cm. There is no right ovarian cyst or ovarian mass. There is no visualized right adnexal mass or complex lesion. There is normal arterial and normal venous vascularity. The left ovary is visualized. The left ovary measures 2.1 x 1.7 x 1.8 cm. There is no left ovarian cyst or ovarian mass. There is no visualized left adnexal mass or complex lesion. There is normal arterial and normal venous vascularity. There is mild fluid in the cul-de-sac. US/Pelvic (Non ) IMPRESSION: Unremarkable examination. Electronically Signed: Aj Mercer, at 13:22 EST Tel , Service support ,
== END ==
PROVIDERS: Visit Provider Obstetrics & Gynecology
DX: N93.9 Abnormal uterine and vaginal bleeding, unspecified (principal)
CPT/HCPCS: 76830; 76856

== ENCOUNTER → 2021-09-26 14:03 | Outpatient (CLI) | payer OTHER, SELFPAY ==
[2021-09-26 15:14] LABS: AST(SGOT) 21 U/L (15-37); Alanine Aminotransfer ALT/SGPT 42 U/L (13-56); Albumin, Serum 3.8 g/dL (3.2-5.0); Alkaline Phosphatase 47 U/L (45-117); Anion Gap 9 (5-15); BUN 12 mg/dL (7-18); BUN/Creat Ratio 17.6 RATIO (10-20); Calcium,Total 8.8 mg/dL (8.5-10.1); Chloride 104 mmol/L (98-107); Creatinine, Serum 0.68 mg/dL (0.55-1.02); EST Glomerular Filtration Rate 106 mL/min (>60); Est Glom Filt Rate - Afr Amer 128 mL/min (>60); Glucose 90 mg/dL (74-106); Potassium 4.2 mmol/L (3.5-5.1); Protein, Total 7.8 g/dL (6.4-8.2); Sodium Level 141 mmol/L (136-145)
== END ==
PROVIDERS: PCP Internal Medicine; Referring Provider Internal Medicine; Visit Provider Internal Medicine
DX: R73.02 Impaired glucose tolerance (oral) (principal)
CPT/HCPCS: 36415; 80053; 83036

== ENCOUNTER → 2022-08-09 | Outpatient (CLI) | payer OTHER, SELFPAY ==
[2022-08-09 12:43] LABS: Absolute Lymphocyte Count 1.69 X10^3/uL (0.83-4.51); Absolute Neutrophil Count 3.4 X10^3/uL (2.0-7.7); Basophil# 0.04 X10^3/uL; Basophil% 0.7 % (0-1); Eosinophil# 0.24 X10^3/uL; Eosinophils% 4.2 % (0-5); Hemoglobin 12.9 g/dL (12.0-15.0); Lymphocyte # 1.69 X10^3/ul (0.83-4.51); Lymphocyte % 29.4 % (19-41); Mean Corp Hgb Conc 33.9 g/dL (32-36); Mean Corpuscular Hgb 29.4 pg (27.0-32.0); Mean Corpuscular Volume 86.6 fL (81-99); Mean Platelet Vol. 12.2 fl (6.2-12.0); Monocyte# 0.32 X10^3/uL; Monocyte% 5.6 % (0-10); NRBC Flagged by Analyzer 0 % (0-5); Neutrophil # 3.43 X10^3/uL (2.7-7.7); Neutrophil % 59.8 % (47-70); Platelet Count 187 K/mm3 (150-450); RBC Distribution Width CV 13.7 % (11.6-14.6); RBC Distribution Width SD 43.4 fl (35.1-43.9); Red Blood Count 4.39 M/mm3 (4.2-5.4); White Blood Count 5.7 K/mm3 (4.4-11.0)
[2022-08-09 13:07] LABS: AST(SGOT) 17 U/L (15-37); Alanine Aminotransfer ALT/SGPT 22 U/L (13-56); Alkaline Phosphatase 52 U/L (45-117); Anion Gap 8 (5-15); BUN 10 mg/dL (7-18); BUN/Creat Ratio 17.8 RATIO (10-20); Calcium,Total 9.3 mg/dL (8.5-10.1); Chloride 105 mmol/L (98-107); Cholesterol 203 mg/dL (200); Creatinine, Serum 0.56 mg/dL (0.55-1.02); EST Glomerular Filtration Rate 133 mL/min (>60); Est Glom Filt Rate - Afr Amer 160 mL/min (>60); Globulin 3.9 g/dL (2.2-4.2); Glucose 85 mg/dL (74-106); High Density Lipoprotein 55 mg/dL; Protein, Total 7.9 g/dL (6.4-8.2); Sodium Level 138 mmol/L (136-145); Triglycerides 83 mg/dL; Very Low Density Lipoprotein 17 mg/dL (5-40)
== END | disposition home or self-care (01) ==
LOC: BIMLAB 11:00
PROVIDERS: PCP Internal Medicine; Referring Provider Internal Medicine; Visit Provider Internal Medicine
DX: Z00.00 Encounter for general adult medical examination without abnormal findings (principal)
CPT/HCPCS: 36415; 80053; 80061; 85025

== ENCOUNTER → 2023-07-24 | Outpatient (CLI) | payer OTHER, SELFPAY ==
[2023-07-28 22:07] LABS: Chlamydia By Nucleic Acid AMP Negative (Negative); Gonococcus By Nucleic Acid AMP Negative (Negative)
== END | disposition home or self-care (01) ==
LOC: LABSPEC 16:46
PROVIDERS: Visit Provider Obstetrics & Gynecology
DX: Z34.90 Encounter for supervision of normal pregnancy, unspecified, unspecified trimester (principal)
CPT/HCPCS: 87491; 87591

== ENCOUNTER → 2023-08-21 | Outpatient (CLI) | payer OTHER, SELFPAY ==
[2023-08-21 15:28] LABS: Absolute Lymphocyte Count 2.09 X10^3/uL (0.83-4.51); Absolute Neutrophil Count 6.5 X10^3/uL (2.0-7.7); Basophil# 0.04 X10^3/uL; Basophil% 0.4 % (0-1); Eosinophil# 0.24 X10^3/uL; Eosinophils% 2.6 % (0-5); Hematocrit 32.1 % (37-47); Hemoglobin 10.9 g/dL (12.0-15.0); Lymphocyte # 2.09 X10^3/ul (0.83-4.51); Lymphocyte % 22.4 % (19-41); Mean Corpuscular Hgb 29.6 pg (27.0-32.0); Mean Corpuscular Volume 87.2 fL (81-99); Monocyte# 0.46 X10^3/uL; Monocyte% 4.9 % (0-10); NRBC Flagged by Analyzer 0 % (0-5); Neutrophil # 6.45 X10^3/uL (2.7-7.7); Neutrophil % 69.4 % (47-70); Platelet Count 156 K/mm3 (150-450); RBC Distribution Width CV 13.5 % (11.6-14.6); RBC Distribution Width SD 42.7 fl (35.1-43.9); Red Blood Count 3.68 M/mm3 (4.2-5.4); White Blood Count 9.3 K/mm3 (4.4-11.0)
[2023-08-21 15:48] LABS: Hemoglobin A1c 5.1 % (3.8-5.6)
[2023-08-21 16:31] LABS: HIV - WCH Non-Reactive (Nonreactive); Hepatitis B Surface Antigen Non-Reactive (Nonreactive); Hepatitis C Antibody Non-Reactive (Nonreactive); Rubella IgG Reactive (Nonreactive); Syphilis Antibodies Non-reactive
== END | disposition home or self-care (01) ==
PROVIDERS: PCP Internal Medicine; Referring Provider Obstetrics & Gynecology; Visit Provider Obstetrics & Gynecology
DX: Z34.90 Encounter for supervision of normal pregnancy, unspecified, unspecified trimester (principal); R73.02 Impaired glucose tolerance (oral)
CPT/HCPCS: 36415; 83036; 85025; 86703; 86762; 86780; 86803; 86850; 86900; 86901; 87086; 87340

== ENCOUNTER → 2023-11-27 | Outpatient (CLI) | payer OTHER, SELFPAY ==
[2023-11-27 14:56] LABS: Absolute Lymphocyte Count 1.71 X10^3/uL (0.83-4.51); Absolute Neutrophil Count 6.7 X10^3/uL (2.0-7.7); Basophil# 0.03 X10^3/uL; Basophil% 0.3 % (0-1); Eosinophil# 0.15 X10^3/uL; Eosinophils% 1.7 % (0-5); Hemoglobin 9.8 g/dL (12.0-15.0); Lymphocyte # 1.71 X10^3/ul (0.83-4.51); Lymphocyte % 18.9 % (19-41); Mean Corp Hgb Conc 32.7 g/dL (32-36); Mean Corpuscular Hgb 28.5 pg (27.0-32.0); Mean Corpuscular Volume 87.2 fL (81-99); Mean Platelet Vol. 11.1 fl (6.2-12.0); Monocyte# 0.38 X10^3/uL; Monocyte% 4.2 % (0-10); NRBC Flagged by Analyzer 0 % (0-5); Neutrophil # 6.73 X10^3/uL (2.7-7.7); Neutrophil % 74.5 % (47-70); Platelet Count 194 K/mm3 (150-450); RBC Distribution Width CV 13.8 % (11.6-14.6); RBC Distribution Width SD 43.8 fl (35.1-43.9); Red Blood Count 3.44 M/mm3 (4.2-5.4)
[2023-11-27 15:02] LABS: Glucose Challenge Gest 1H 50g 152 mg/dL (70-140)
[2023-11-27 15:46] LABS: HIV - WCH Non-Reactive (Nonreactive); Syphilis Antibodies Non-reactive
--- OUTSIDE RECORDS SUMMARY | 2023-11-27 17:58 | XMS RPT_ITS | CCD ---
Author Name Unknown Address [address] [place] [address] Organization [facility] Care Team Providers Care Brass Cleaner Name Role Phone Longsantiago, Marilee A Unavailable Unavailab le Longsdorf, Marilee A Unavailable Unavailab le Longsdorf, Marilee A Unavailable Unavailab le Longsdorf, Marilee A Unavailable Unavailab le Amandaorf, Marilee A Unavailable Unavailab le Marcell, Marilee A Unavailable Unavailab ABHISHEK Massey Admitting Unavailable ABHISHEK CHAN Primary Care Unavailable ABHISHEK CHAN Primary Care Unavailable GELY SHAIKH Attending Unavailable Abhishek Chan Primary Care Provider ANIRUDH OCONNELL Referring UnavailANIRUDH Izaguirre Attending Juanita salinas Allergies Allergy Classification Reported Allergen(s) Allergy Type Date of Onset Reaction(s) Facility (1 source) azithromycin; Translations: [Zithromax] Drug Allergy [facility] Repository (3 sources) Penicillins; Translations: [penicillins] Propensity to adverse reactions to drug (disorder) 3 [facility] Repository (1 source) No Known Allergies; Translations: [No Known Allergies] Propensity to adverse reactions to drug (disorder) [facility] Repository (2 sources) Azithromycin; Translations: [AZITHROMYCIN] Drug Allergy 0 [facility] Repository Medications Current Medications Medication Drug Class(es) Dates Sig (Normalized) Sig (Original) vitamin with Ca-Iron-FA 27-1 mg Tab (1 source) take 1 tablet by mere th once daily vitamin with Ca-Iron-FA 27-1 mg Tab Take 1 tablet by mouth daily . 0 Active Problems Active Problems Problem Classification Problem Date Documented Da te Episodic/Chronic Other non-traumatic joint disorders (1 source) Stiffness of right knee; Translations: [Knee stiffness, right] Past or Other Problems Problem Classification Problem Date Documented Da te Episodic/Chronic NEGATED: Highlighted row has been ruled out!Unclassified (1 source) No known active problems Results Test Name Value Interpretation Reference Range Facil ity Encounters Encounter Date Encounter Type Care Provider Facility Start: 09-18-2023 End: 09-18-2023 ambulatory ANIRUDH OCONNELL [facility] Start: 10-25-2020 End: 10-25-2020 Patient encounter procedure ABHISHEK CHAN [facility] Start: 10-25-2020 End: 10-25-2020 Office outpatient new 20 minutes Gely Shaikh Work Phone: [facility] Plan of Treatment Date Care Activity Detail Author Start: 09-25-2028 Tetanus vaccination Tetanus: Every 1 0yrs [facility] Start: 06-06-2020 Influenza vaccination given Se quential Influenza Vaccine (#1) [facility] Start: 2007 Hepatitis C antibody , confirmatory test Hepatitis C Screening [facility] Start: 2004 HIV screening HIV Screening [facility] Start: 2001 Adolescent depressio n screening assessment Depression Screening (PHQ9) [facility] Start: 1992 History and physical examination, annual for health maintenance Wellness Visit [facility] Start: 1989 Screening for malign ant neoplasm of cervix Pap Smear [facility] Payers Date Payer Category Payer Unknown 2017 Unknown [id number] 2017 Unknown [employer] PPO [id number] 2017-Present [id number] 1989 Unknown [id number] 1989 Unknown [id number] 1989 Unknown [id number] Unknown [id number] Social History Date Type Detail Facility Start: 10-26-2020 Tobacco smoking status NHIS Never sm oker [facility] Start: 10-26-2020 Tobacco use and exposure Never used [facility] Start: 10-26-2020 Alcohol intake Current drinke r of alcohol (finding) [facility] Start: 10-25-2020 History SDOH Alcohol Frequency 3 [facility] Start: 10-25-2020 History SDOH Alcohol Std Drinks 99 [facility] Sex Assigned At Not on file [place] [facility] Exposure to SARS-CoV -2 (event) Not sure [facility] Summary Purpose Family History No Family History Records FoundNo Family History Records FoundNo Family History Records FoundNo Family History Records Found Advance Directives No Advanced Directives Records FoundDocuments on File Type Date Recorded Patient Health Care 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 is a she with right knee pain. Chief Complaint Patient presents with Right Knee - Pain . HPI: Knee Pain: Jennifer presents to the office today with right knee pain. She has just recently found out she is with her 2nd child. She complains of a popping sensation in the right knee which started last week. 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 She doesn't have pain but more stiffness than anything. Shestates that the knee hasn't given out on her but she is nervous that it could. She isn't able to walk as long as she had been or even jog like she had been doing. Since she is she hasn't taken anything for the knee. She just wants it checked to make sure it is ok since she is . PMH: Allergies Allergen Reactions Azithromycin Rash Got this when had mono and had just Finished the amoxil Penicillins Rash Current Outpatient Medications: vitamin with Ca-Iron-FA 27-1 mg Tab, Take 1 tablet by mouth daily ., Disp: , Rfl: No past medical history on file. No past surgical history on file. Social History Socioeconomic History Marital status: Spouse name: Not on file Number of children: Not on file Years of education: Not on file Highest education level: Not on file Occupational History Not on file Social Needs Financial resource strain: Not on file Food insecurity Worry: Not on file Inability: Not on file Transportation needs Medical: Not on file Non-medical: Not on file Tobacco Use Smoking status: Never Smoker Smokeless tobacco: Never Used Substance and Sexual Activity Alcohol use: Yes Alcohol/week: 2.0 standard drinks Types: 2 Cans of beer per week Frequency: 2-4 times a month Drug use: Not on file Sexual activity: Not on file Lifestyle Physical activity Days per week: Not on file Minutes per session: Not on file Stress: Not on file Relationships Social connections Talks on phone: Not on file Gets together: Not on file Attends mormon service: Not on file Active member of club or organization: Not on file Attends meetings of clubs or organizations: Not on file Relationship status: Not on file Other Topics Concern Not on file Social History Narrative Not on file The patient's past medical history, surgical history, social history, family history, medications and allergies were reviewed with the patient today and are available in the chart for further review. ROS: Review of Systems Constitutional: Negative for activity change and fatigue. HENT: Negative for congestion, hearing loss and trouble swallowing. Eyes: Negative for visual disturbance. Respiratory: Negative for chest tightness and shortness of breath. Cardiovascular: Negative for chest pain and palpitations. Gastrointestinal: Negative for abdominal pain, diarrhea, nausea and vomiting. Endocrine: Negative for polydipsia, polyphagia and polyuria. Genitourinary: Negative for decreased urine volume, difficulty urinating and hematuria. Musculoskeletal: Negative for arthralgias, joint swelling and myalgias. Skin: Negative for color change, rash and wound. Allergic/Immunologic: Negative for immunocompromised state. Neurological: Negative for dizziness, weakness, light-headedness and numbness. Hematological: Does not bruise/bleed easily. Psychiatric/Behavioral: Negative for confusion and sleep disturbance. The patient is not nervous/anxious. PE: Physical Exam Constitutional: She is oriented to person, place, and time. She appears well- developed and well-nourished. HENT: Head: Normocephalic. Eyes: Pupils are equal, round, and reactive to light. Neck: Normal range of motion. Neck supple. Cardiovascular: Normal rate and regular rhythm. Pulmonary/Chest: Effort normal and breath sounds normal. Abdominal: Soft. Bowel sounds are normal. Musculoskeletal: Normal range of motion. Right knee: She exhibits LCL laxity. She exhibits no effusion. Neurological: She is alert and oriented to person, place, and time. Skin: Skin is warm and dry. ORTHO: Right Knee Exam Tenderness The patient is experiencing no tenderness. Range of Motion The patient has normal right knee ROM. Tests Rachelle: Medial - negative Lateral - negative Varus: negative Valgus: negative Iain: Anterior - negative Drawer: Anterior - negative Posterior - negative Other Erythema: absent Scars: absent Sensation: normal Pulse: present Swelling: none Effusion: no effusion present Imaging: No imaging, patient declined. Assessment/Plan: After examination we discussed different treatment options for the knee. At this time, I am placing her in a Reaction brace for additional support to be worn with activity especiallywhile at work. I also sent her with home physical therapy exercises. We did not obtain imaging today due to the . If she does start to have pain I instructed her to take some tylenol. If thesymptoms continue to worsen, she will return to the office for re- evaluation. The patient verbalizes understanding and is in agreement with the treatment plan. Diagnosis: Problem List Items Addressed This Visit None Follow Up: No follow-ups on file. Gely Shaikh CNP documented in this encounter Assessments Diagnosis Knee stiffness, right- Primary Additional Source Comments INFORMATION SOURCE (unrecogn ized section and content) DATE CREATED AUTHOR AUTHOR'S ORGANIZ ATION 08/06/2019 [facility] DATE CREATED AUTHOR AUTHOR'S ORGANIZ ATION 10/25/2020 [facility] DATE CREATED AUTHOR AUTHOR'S ORGANIZ ATION 09/20/2023 [facility] Reason for Visit (unrecogniz ed section and content) FOR RECORDS PERTAINING TO PATIENTS WHO ARE OR HAVE BEEN ENROLLED IN A CHEMICAL DEPENDENCY/SUBSTANCEABUSE PROGRAM, SOME INFORMATION MAY BE OMITTED. This clinical summary was aggregated from multiple sources. Caution should be exercised in using it in the provision of clinical care. This summary normalizes information from multiple sources, and as a consequence, information in this document may materially change the coding, format and clinical context of patient data. In addition, data may be omitted in some cases. CLINICAL DECISIONS SHOULD BE BASED ON THE PRIMARY CLINICAL RECORDS. [facility]. provides no warranty or guarantee of the accuracy or completeness of information in this document.
== END | disposition home or self-care (01) ==
LOC: PAVLAB 14:20
PROVIDERS: PCP Internal Medicine; Referring Provider Advanced Practice Midwife; Visit Provider Advanced Practice Midwife
DX: O26.899 Other specified pregnancy related conditions, unspecified trimester (principal); Z67.91 Unspecified blood type, Rh negative; Z3A.00 Weeks of gestation of pregnancy not specified
CPT/HCPCS: 36415; 82950; 85025; 86703; 86780; 86850; 86900; 86901

== ENCOUNTER → 2024-01-20 | Outpatient (CLI) | payer OTHER, SELFPAY ==
--- NOTE | 2024-01-20 14:23 | US_ITS ---
STUDY: SECOND AND THIRD TRIMESTER OBSTETRICAL ULTRASOUND - LIMITED REASON FOR EXAM: Female, 33 years old growth , gestational diabetes LMP: 05/13/2023 PRIOR ULTRASOUND: No relevant prior comparison study available TECHNIQUE: Transabdominal TECHNICAL QUALITY: Adequate. FINDINGS: There is a single intrauterine fetus. The fetus is in a breech presentation. There is demonstrated cardiac activity with a heart rate of 157 bpm. There is a normal amniotic fluid volume. The largest amniotic fluid pocket measures 3.9 cm. The amniotic fluid index (MARY) is 9.8 cm. The placenta is posterior in location and is not low lying. There are Grade 2 placental changes. The cervix is not visualized. BIOMETRY: BPD: 9 cm: 36 weeks, 3 days HC: 33.1 cm: 37 weeks, 5 days AC: 31.4 cm: 35 weeks, 2 days FL: 7 cm: 35 weeks, 5 days Age by LMP: 36 weeks, 0 days. ALBARO by LMP: 02/17/2024. age by current US: 36 weeks, 3 days. ALBARO by current US: 02/14/2024. Estimated weight: 2759 grams, +/- 414 grams, 44 percentile. US/OB Limited With Biometrics IMPRESSION: Single live intrauterine fetus in breech presentation with an estimated gestational age of 36 weeks and 3 days. Electronically Signed: Aj Mercer MD at 15:10 EDT ,
== END | disposition home or self-care (01) ==
LOC: OPUS 14:22
PROVIDERS: PCP Internal Medicine; Referring Provider Obstetrics & Gynecology; Visit Provider Obstetrics & Gynecology
DX: O24.419 Gestational diabetes mellitus in pregnancy, unspecified control (principal); Z3A.33 33 weeks gestation of pregnancy
CPT/HCPCS: 76816

== ENCOUNTER → 2024-01-22 | Outpatient (CLI) | payer OTHER, SELFPAY | END | disposition home or self-care (01) | PROVIDERS: PCP Internal Medicine; Referring Provider Obstetrics & Gynecology; Visit Provider Obstetrics & Gynecology | DX: Z34.90 Encounter for supervision of normal pregnancy, unspecified, unspecified trimester (principal) | CPT/HCPCS: 87081 ==

== ENCOUNTER 2024-01-27 07:42 | Inpatient (IN) | payer OTHER, SELFPAY ==
[2024-01-27] VITALS (13 sets, daily range): BP systolic 81–120; BP diastolic 57–77; PULSE 62–96; RESP 12–18; TEMP 36.2–36.8; O2SAT 96–99; BMI 28.6
--- NOTE | 2024-01-27 | PLAC_PTH ---
PATIENT: TIM MEDINA LOC: WP U#:[id number] AGE/SX: 33/F ROOM: WP007 RE01/27/[address]: Dr. Val Matias MD : 1990 BED: 1 DIS: 01/29/2024 SPEC #: [id number] RECD: 01/27/24 10:15 STATUS: LOLIS REKun #: [id number] JJ: 01/27/24 00:[address]: Val Matias DEPT: SURGICAL PATHOLOGY RECD BY: Virgilio Barros ENTERED: 01/28/24 10:16 SP TYPE: PLACENTA OTHR DR: Dr. Adilia Johnson MD Tissues: Placenta, NOS Procedures: Surgery Specimen Level V HEADER OPERATION: section PRE-OP DIAGNOSIS: Oligohydramnosis/ pre-term TISSUE SUBMITTED: Placenta MICROSCOPIC DIAGNOSIS Placenta: Placental disc - third trimester placenta (407 gm). - Two areas of intraparenchymal hemorrhage (0.8 and 0.2cm) in greatest dimension. Membranes - Focal circummarginate insertion. Umbilical cord - three blood vessels and no pathologic diagnosis. SJ: 01/30/24 MICROSCOPIC DESCRIPTION Slides are reviewed. GROSS DESCRIPTION SPECIMEN: PLACENTA / CLINICAL INFORMATION: A. Weight: 2.37 kg B. Gestational Age: 37 weeks C. Sex: Female PLACENTAL WEIGHT (POST FIXATION): 407 gm PLACENTAL DIMENSIONS: 15.0 x 14.0 x 3.0 cm PLACENTAL SHAPE: Usual ovoid PLACENTAL WEIGHT FOR GESTATIONAL AGE: Within 10-99th percentile MEMBRANES - Present A. Insertion: Inserted one-third of the circumference of placenta 1.5 to 2.5cm away from the margin B. Site of rupture from edge: 5.0 cm from the margin of placental disc C. Color of membrane: Peres-givens D. Abnormalities: None UMBILICAL CORD - Present A. Color: Peres-givens B. Insertion: Paracentral C. Length: 33 cm D. Diameter: up to 1.5 cm E. Number of vessels: Three F. Abnormalities: None PLACENTAL DISC - Present A. Color of surface: Peres-givens B. surface abnormalities: None C. Maternal cotyledons: Intact with minimal tears D. Attached retro placental clot: No clot E. Cut surface: Dark red and spongy F. Lesions: Sections reveal a peres indurated area measuring 0.8cm in greatest dimension and hemorrhagic area 2.0cm in greatest dimension G. Separate clot: Multiple blood clots are present weighing in aggregate 34gm and measuring 8.0 x 8.0 x 2.0cm. SECTIONS SUBMITTED: 1. Membrane roll 2. Cord, maternal end, peres lesion 3. Cord, end, placenta with insertion away from the margin 4. Placental disc, and maternal surfaces, hemorrhagic lesion 5. Placental disc, and maternal surfaces 6. Placental disc, and maternal surfaces SJ/mr 01/29/24TC: 5 CPT: 13848
[2024-01-27] MEDS: Lactated Ringers 1,000 ML 500 ML IV (08:15)
[2024-01-27 08:35] LABS: Absolute Lymphocyte Count 1.69 X10^3/uL (0.83-4.51); Absolute Neutrophil Count 4.6 X10^3/uL (2.0-7.7); Basophil# 0.03 X10^3/uL; Basophil% 0.4 % (0-1); Eosinophil# 0.12 X10^3/uL; Eosinophils% 1.7 % (0-5); Hematocrit 33.9 % (37-47); Hemoglobin 11.4 g/dL (12.0-15.0); Lymphocyte # 1.69 X10^3/ul (0.83-4.51); Lymphocyte % 24.5 % (19-41); Mean Corp Hgb Conc 33.6 g/dL (32-36); Mean Corpuscular Hgb 28.9 pg (27.0-32.0); Mean Corpuscular Volume 85.8 fL (81-99); Mean Platelet Vol. 12.3 fl (6.2-12.0); Monocyte# 0.38 X10^3/uL; Monocyte% 5.5 % (0-10); NRBC Flagged by Analyzer 0 % (0-5); Neutrophil # 4.64 X10^3/uL (2.7-7.7); Neutrophil % 67.5 % (47-70); Platelet Count 152 K/mm3 (150-450); RBC Distribution Width CV 14.1 % (11.6-14.6); Red Blood Count 3.95 M/mm3 (4.2-5.4); White Blood Count 6.9 K/mm3 (4.4-11.0)
[2024-01-27 08:50] LABS: Bedside Glucose 83 mg/dL (74-106)
[2024-01-27 09:18] LABS: Syphilis Antibodies Non-reactive
--- NOTE | 2024-01-27 12:28 | HP.PCM.OB_ITS ---
HPI - General General Date of Admission: 01/27/24 HPI Narrative TIM MEDINA, is a 33 F who presents for ECV due to breech and is found to be oligohydramnios with 3 cm of fluid so delivery is recommended. Maternal Data Information ALBARO Calculator Estimated Delivery Date Method Current WG Current Estimate 02/17/24 LMP (Certain) 37w 0d Other Estimates 02/16/24 Ultrasound #1 37w 1d PFSH PFS Medical History (Updated 01/27/24 @ 15:[address] Val Matias MD) Anemia Generalized anxiety disorder Glucose intolerance (impaired glucose tolerance) History of anemia History of gestational diabetes Oligohydramnios Home Medications multivitamin 1 tab PO DAILY 10/03/22 [History Last Taken 01/26/24] ferrous sulfate 325 mg (65 mg iron) tablet (Iron (ferrous sulfate)) 325 mg PO DAILY anemia 01/27/24 [History Last Taken 01/27/24] Allergy/AdvReac Type Severity Reaction Status Date / Time amoxicillin Allergy Severe Hives Verified 01/27/24 07:47 Family History Father Myocardial infarction Other Alcoholism in family Anemia Diabetes Hypertension Social History adopted: No household members: family housing: house number of children: 2 current occupational status: employed Smoking Status: Never smoker second hand exposure: No alcohol intake: never substance use type: does not use caffeine: Yes what type of physical activity do you participate in: walking seatbelt use: always do you feel safe at home: Yes additional social history: [place]- 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 Date Name GA/Weeks Outcome Route Bth Weight Gen Labor Lgth Anesthesia Del Locatn Provider FOB 12/22/18 ALLY 40 live - full term 7lbs 6oz Female 4.5 hours epidural [facility] NELY 06/20/21 Tyler 39 live - full term Male epidur al [facility] NELY Delivery Date: 12/22/18 Last Updated by: Wendy Loo GDMA; 2nd degree laceration; uterine atony Delivery Date: 06/20/21 Last Updated by: Wendy Loo GDM Visit Details Expected Delivery Route/Plan Labor Preferences- CB/BF classes: [] labor support person: [] labor intervention preferences: [] pain management options preferred: [] cut cord/dad catch: [] : [] PP control planned: [] discussed possible routes of delivery and associated risks: [] special requests: [] Plans Covid status: [] Flu vaccine: given Tdap vaccine: given Rhogam: [given LARC form signed: declined movement and labor precautions reviewed. Problem list reviewed and updated with the most current plan of care details and appropriate orders placed. Relevant counseling for the gestational age provided. Continue routine care and follow up unless otherwise noted in visit notes/problem list details OB Flowsheet Initial Weight: Not Recorded Date -?-?-?-?-?-?-?-?-?-?-?-?- EGA Weight BP Urine Prot -?-?-?-?-?-?-?-?-?-?-?-?- Glucose FHR FuHt Pres Dilation -?-?-?-?-?-?-?-?-?-?-?-?- Effaced St Visit Note 07/24/23 -?-?-?-?-?-?-?-?-?-?-?-?- 10w 2d 164 lb 134/84 -?-?-?-?-?-?-?-?-?-?-?-?- 160 -?-?-?--?-?-?-?-?-?-?-?-?- SM- CRL cons wit h lmp 08/21/23 -?-?-?-?-?-?-?-?-?-?-?-?- 14w 2d 169 lb 2 oz 126/82 Nega tive -?-?-?-?-?-?-?-?-?-?-?-?- Negative 155 -?-?-?-?-?-?-?-?-?-?-?-?- KW-no vb/merle g. no concerns 09/16/23 -?-?-?-?-?-?-?-?-?-?-?-?- 18w 0d 166 lb 113/80 -?-?-?-?-?-?-?-?-?--?-?-?- 150 -?-?-?-?-?-?-?-?-?-?-?-?- SM- no vb lof no ctx 10/13/23 -?-?-?-?-?-?-?-?-?-?-?-?- 21w 6d 170 lb 2 oz 121/76 Nega tive -?-?-?-?-?-?-?-?-?-?-?-?- Negative 156 -?-?-?-?-?-?-?-?-?-?-?-?- JV- no lof, vagi nal bleeding, or dec fm. plan for 28 week labs with rhogam 11/14/23 -?-?-?-?-?-?-?-?-?-?-?-?- 26w 3d 171 lb 6 oz 132/84 Nega tive -?-?-?-?-?-?-?-?-?-?-?-?- Negative 152 24 -?-?-?-?-?-?-?-?-?-?-?-?- KW- no vb/lof/ct x. good fm. tdap was given today. 28 week labs ordered. rhogam next visit. 11/27/23 -?-?-?-?-?-?-?-?-?-?-?-?- 28w 2d 175 lb 118/77 -?-?-?-?-?-?-?-?-?--?-?-?- 145 28 -?-?-?-?-?-?-?-?-?-?-?-?- Sm- no vb lof go od fm no regular ctx 12/11/23 -?-?-?-?-?-?-?-?-?-?-?-?- 30w 2d 174 lb 119/83 Negative -?-?-?-?-?-?-?-?-?-?-?-?- Negative 148 30 -?-?-?-?-?-?-?-?-?-?-?-?- kw- no vb/lof/ct x. good fm. BS reviewed and controlled. LARC today 12/25/23 -?-?-?-?-?-?-?-?-?-?-?-?- 32w 2d 174 lb 121/79 -?-?-?-?-?-?-?-?-?-?-?-?- 145 32 -?-?-?-?-?-?-?-?-?-?-?-?- SM- no vb lof go od fm no regular ctx BS controlled 01/05/24 -?-?-?-?-?-?-?-?-?-?-?-?- 33w 6d 174 lb 116/78 Negative -?-?-?-?-?-?-?-?-?-?-?-?- Negative 166 33 Transverse -?-?-?-?-?-?-?-?-?-?-?-?- JV- head to mate rnal right. plan to re-scan next visit and collect gbs. BS well controlled. 01/22/24 -?-?-?-?-?-?-?-?-?-?-?-?- 36w 2d 177 lb 135/79 Negative -?-?-?-?-?-?-?-?-?-?-?-?- Negative 140 36 Breech -?-?-?-?-?-?-?-?-?-?-?-?- SM- breech discu ssed ECV friday if still breech. repeat sergio then also. NST FHR Rate Baby A Baseline: 130 Variability:: Moderate Accelerations:: 15 x 15 Decelerations:: None NST Reactive:: Yes FHR Category:: Category I Uterine Activity:: irregular ROS Constitutional Constitutional: Reports systems reviewed and no addt'l complaints, except as documented Eyes Eyes: Denies change in vision ENT HEENT: Reports systems reviewed and no addt'l complaints, except as documented; Denies headache(s) Cardiovascular Cardiovascular: Reports systems reviewed and no addt'l complaints, except as documented; Denies chest pain or dyspnea Respiratory/Chest Respiratory/Chest: Reports systems reviewed and no addt'l complaints, except as documented Gastrointestinal Gastrointestinal: Reports systems reviewed and no addt'l complaints, except as documented; Denies abdominal pain Genitourinary Genitourinary: Reports systems reviewed and no addt'l complaints, except as documented, contractions Details: present (irregular) and movement D etails: present; Denies dysuria or genital lesions Musculoskeletal Musculoskeletal: Reports systems reviewed and no addt'l complaints, except as documented Neurologic Neurologic: Reports systems reviewed and no addt'l complaints, except as documented Endocrine Endocrinology: Reports systems reviewed and no addt'l complaints, except as documented Vital Signs Vital Signs Vital Signs: 01/27/24 08:11 01/27/24 08:11 01/27/24 08:11 Temperature Temperature Source Oral Pulse Rate 89 Respiratory Rate Blood Pressure 120/77 BP Systolic 120 BP Diastolic 77 01/27/24 08:11 01/27/24 08:11 Temperature 98.2 F Temperature Source Pulse Rate Respiratory Rate 16 Blood Pressure BP Systolic BP Diastolic Weight Weight: 177 lb 6 oz Body Mass Index (BMI) 28.6 Physical Exam Const alert, oriented x3, no apparent distress and healthy appearing HEENT normocephalic and moist oral mucous membranes Head and Scalp: atraumatic Neck full ROM, no lymphadenopathy, supple and thyroid normal General: trachea midline Lymph Lymphatic: no lymphadenopathy noted Chest inspection of chest normal Resp normal respiratory effort Cardio regular rate GI soft to palpation and non-tender Inspection: gravid Extremity normal to inspection General Extremity: Negative for edema Skin no rashes or lesions noted Neuro no focal motor deficits and deep tendon reflexes 2+ bilaterally Motor Exam: strength 5/5 throughout and clonus absent Psych mental status grossly normal Labs Labs Labs: Blood Type AB NEGATIVE Antibody Screen POSITIVE Hct 33.9 % (37-47) L Hgb 11.4 g/dL (12.0-15.0) L Obstetrics Ultrasound Syphilis Total Ab Non-reactive Rubella IgG Antibody Reactive (Nonreactive) Hep Bs Antigen Non-Reactive (Nonreactive) Hepatitis C Antibody Non-Reactive (Nonreactive) Chlamydia DNA (VERN) Negative (Negative) N.gonorrhoeae DNA (VERN) Negative (Negative) HIV 1&2 Antibody Non-Reactive (Nonreactive) Glucose 1 Hr 50 gm 152 mg/dL (70-140) H Rhogam given: Yes Assessment & Plan (1) Gestational diabetes: COMMENT: BS testing fasting and 2 hr post meals, growth US (2) Rh negative status during : COMMENT: Rhogam @28 wks & PRN for bleeding (3) Oligohydramnios in third trimester: PLAN: Plan proceed with primary ltcs today
[2024-01-27] MEDS: Sodium Citrate/Citric Acid 30 ML UDC PO (15:04)
[2024-01-27] MEDS: Acetaminophen 500 MG Tablet 1000 MG PO ×2 (15:04→20:46)
[2024-01-27] MEDS: Lactated Ringers 1,000 ML 999 ML IV (15:05)
--- NOTE | 2024-01-27 15:29 | OP.PCM_ITS ---
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 Cantrell catheter was placed. The patient was placed in the dorsal supine position with leftward tilt. Patient was prepped and draped in the normal sterile fashion. Pfannenstiel skin incision was made with the scalpel and carried through to the underlying layer of fascia with the scalpel. Fascia was nicked in the midline and the incision extended laterally. The rectus bellies were dissected off superiorly and inferiorly with out complication both sharply and bluntly. The peritoneum was entered digitally. The incision was stretched and a low transverse uterine incision was made with the scalpel. The buttox was delivered atraumatically and the right and left legs were swept anteriorly and delivered, followed by the body and the arms which were swept anteriorly and delivered. Gentle traction was placed on the mentum to flex the head which was delivered without complication. The cord was clamped and cut and the infant was handed off to awaiting nurse. The placenta was delivered spontaneously immediately following and was noted to be intact and have a three-vessel cord. The uterus was exteriorized cleared of all clots and debris, and the incision was closed in a single layer closure using #1 Monocryl. The ovaries and fallopian tubes were noted to be within normal limits. The uterus was returned to the maternal abdomen and gutters were cleared of all clots and debris. The peritoneum was closed with 3-0 Monocryl in a running fashion. Gloves were changed prior to fascial closure. Fascia was closed with 0 PDS in a running fashion. Subcutaneous tissue was copiously irrigated and the skin was closed with 3-0 Monocryl in a subcuticular fashion. Mepilex dressing was applied without complication. Patient was taken to recovery in stable condition. Amniotic Membrane Rupture Type: Artificial Amniotic Fluid Description: Clear Placenta Disposition: [facility] Cord Vessel Description: 3 Vessels Delayed Cord Clamping: Yes Complications Risks of Surgery Discussed w/Patient: Bleeding, Infection, Need for Future C- Sections and Injury to surrounding structure(s) including bowel and bladder Vaginal Delivery Complication Complications: None Admit VTE Documentation VTE Present on Admission: No VTE Mechan Device Prophylaxis: SCD's Procedures Urinary/Genital [id number]: [id number] Delivery [facility]
--- NOTE | 2024-01-27 15:36 | DCINST_ITS ---
Discharge Instructions Diet Discharge Diet: No restrictions Activity Discharge Activity: May Not Drive (for 2 weeks or while taking narcotic pain medications.), May Shower and May Take a Tub Bath (in 7 days) May shower in (days): 0 May resume sexual activity in: 4-6 weeks Weight Bearing Status: Full weight bearing Lifting Restrictions: 20 pounds Dressing / Incision Call your doctor if your incision/area has: Continuous Slow Oozing, Sudden Increased Bleeding, Increased Pain/ Swelling, Increased Redness and Foul Smelling Discharge Call your doctor if you observe: Fever of 101 or Higher and Using more than 1 pad per hour (for 2 hours) Suture Line Care: Avoid Pulling/Pushing and Avoid Pinching/Bending Cleanse incision/area with: Soap & Water and Keep Dressing Clean & Dry Follow Up Care Please Follow Up With: Val Matias MD When: Call [phone] to make an appointment for an incision check in 1-2 weeks. Test Results: Test results from this visit will be discussed in further detail at your follow- up appointment, if applicable. Discharge Plan Admission Admit Date/Time: 01/27/24 07:42 Attending Provider: Val Matias Primary Care Provider: Adilia Johnson Discharge Orders/Prescriptions Prescriptions: New oxycodone-acetaminophen [Percocet] 5-325 mg tablet 1 tab PO Q6H PRN (Reason: pain) 7 Days Qty: 20 0RF naproxen [naproxen] 500 mg tablet 500 mg PO BID PRN PRN (Reason: Pain) Qty: 30 1RF No Action multivitamin Tablet 1 tab PO DAILY ferrous sulfate [Iron (ferrous sulfate)] 325 mg (65 mg iron) tablet 325 mg PO DAILY Referrals / Follow Up: Adilia Johnson MD [Primary Care Provider] -
[2024-01-27] MEDS: Clindamycin 900 MG/50 ML BAG 75 MG IV (16:14)
[2024-01-27] MEDS: Gentamicin IV 300 MG in Dextrose 5%-Water (50mL Bag) 50 ML 100 MG IVPB (16:24)
[2024-01-27] MEDS: Ketorolac 30 MG/ML Syringe IV (17:33)
[2024-01-27] MEDS: Oxytocin 15 Units/NS 250ml 15 UNITS/250 ML IV.SOLN 83 UNITS IV (17:33)
[2024-01-27 18:56] LABS: Bedside Glucose 98 mg/dL (74-106)
[2024-01-27] MEDS: Lactated Ringers 1,000 ML 100 ML IV (20:46)
[2024-01-27 22:27] LABS: Pathology Specimen OB SEE PATHOLOGY REPORT
[2024-01-28] MEDS: 0.9% Saline Lock 10 ML Syringe IV ×3 (00:36→13:50)
[2024-01-28] MEDS: Ketorolac 30 MG/ML Syringe IV ×3 (00:36→13:50)
[2024-01-28] MEDS: Rho(D) Immune Globulin 300 MCG (1500 Unit) Syringe IV (00:37)
[2024-01-28 01:00] VITALS: BP 106/74; PULSE 71; RESP 16; TEMP 36.9; O2SAT 98
[2024-01-28] MEDS: Acetaminophen 500 MG Tablet 1000 MG PO ×4 (03:00→20:53)
[2024-01-28 05:00] VITALS: BP 102/65; PULSE 68; RESP 16; TEMP 36.7; O2SAT 97
[2024-01-28 05:59] LABS: Bedside Glucose 84 mg/dL (74-106)
[2024-01-28 06:36] LABS: Hematocrit 32.6 % (37-47); Hemoglobin 10.8 g/dL (12.0-15.0); Mean Corp Hgb Conc 33.1 g/dL (32-36); Mean Corpuscular Hgb 28.7 pg (27.0-32.0); Mean Corpuscular Volume 86.7 fL (81-99); Mean Platelet Vol. 12.4 fl (6.2-12.0); Platelet Count 164 K/mm3 (150-450); RBC Distribution Width CV 14.2 % (11.6-14.6); RBC Distribution Width SD 45.1 fl (35.1-43.9); Red Blood Count 3.76 M/mm3 (4.2-5.4)
[2024-01-28 08:05] VITALS: BP 121/74; PULSE 79; RESP 16; TEMP 36.6; O2SAT 99
--- NOTE | 2024-01-28 08:14 | PN.OBGYN_ITS ---
Subjective Subjective Patient doing well without complaints. Tolerating PO. Ambulating and voiding without difficulty. Feeding well. Denies chest pain, shortness of breath, calf pain/swelling, fevers, chills, lightheadedness. Objective Data Objective Data Vital Signs: Vital Signs Temp Pulse Resp BP Pulse Ox O2 Del Method 98.1 F 68 16 102/65 97 Room Air 01/28/24 05:00 01/28/24 05:00 01/28/24 05:00 01/28/24 05:00 01/28/24 05:00 01/28/24 05:00 Oxygen Delivery Method Room Air Weight: 177 lb 6 oz Body Mass Index (BMI) 28.6 Intake & Output: Intake and Output for Last 24 Hours 01/26/24 01/27/24 01/28/24 23:59 23:59 23:59 Intake Total 1724.17 / 1724.17 Output Total 600 / 600 1650 / 1650 Balance 1124.17 / 1124.17 -1650 / -1650 Lab / Micro Data 01/28/24 06:10 Labs: Laboratory Results - last 24 hr 01/27/24 08:15: WBC 6.9, RBC 3.95 L, Hgb 11.4 L, Hct 33.9 L, MCV 85.8, MCH 28.9, MCHC 33.6, RDW Std Deviation 44.0 H, RDW Coeff of Christine 14.1, Plt Count 152, MPV 12.3 H, Immature Gran % (Auto) 0.400, Neut % (Auto) 67.5, Lymph % (Auto) 24.5, Harlan % (Auto) 5.5, Eos % (Auto) 1.7, Baso % (Auto) 0.4, Absolute Neuts (auto) 4.6, Absolute Lymphs (auto) 1.69, Nucleated RBC % 0, Syphilis Total Ab Non- reactive, Blood Type AB NEGATIVE, Antibody Screen POSITIVE, Antibody Identi fication ANTI-D 01/27/24 08:30: POC Glucose 83 01/27/24 18:30: POC Glucose 98, Screen NEGATIVE, Baby's Blood Type A POSITIVE, Baby's PIERRE NEGATIVE 01/28/24 05:01: POC Glucose 84 01/28/24 06:10: WBC 10.0, RBC 3.76 L, Hgb 10.8 L, Hct 32.6 L, MCV 86.7, MCH 28.7, MCHC 33.1, RDW Std Deviation 45.1 H, RDW Coeff of Christine 14.2, Plt Count 164, MPV 12.4 H Physical Exam Const alert and oriented x3 HEENT normocephalic Eyes PERRL Neck full ROM Resp normal respiratory effort GI soft to palpation GI Narrative: FF below U. Dressing dry and intact Palpation: tender other (appropriately) Assessment & Plan (1) delivery delivered: COMMENT: LT breech oligo Margie Brittni 35 (2) Gestational diabetes: QUALIFIERS: Gestational diabetes mellitus control: diet-controlled Trimester: unspecified trimester Qualified Code(s): O24.410 - Gestational diabetes mellitus in , diet controlled COMMENT: stable pp (3) Rh negative status during : QUALIFIERS: Trimester: unspecified trimester Qualified Code(s): O26.899 - Other specified related conditions, unspecified trimester; Z67.91 - Unspecified blood type, Rh negative COMMENT: Rhogam @28 wks & PRN for bleeding PLAN: Plan s/p LTCS PPD # 1 1. routine post care 2. breast feeding- support given 3. Rh negative 4. rubella immune 5. glucose stable
[2024-01-28] MEDS: Senna/Docusate Sodium 1 Tablet PO (09:06)
[2024-01-28 12:00] VITALS: BP 116/73; PULSE 79; RESP 18; TEMP 36.6; O2SAT 100
[2024-01-28 16:00] VITALS: BP 131/81; PULSE 79; RESP 18; TEMP 37; O2SAT 99
[2024-01-28] MEDS: Naproxen 500 MG Tablet PO (18:04)
[2024-01-28 20:20] VITALS: BP 118/80; PULSE 70; RESP 16; TEMP 36.6; O2SAT 97
[2024-01-29 01:35] VITALS: BP 108/83; PULSE 79; RESP 16; TEMP 36.6; O2SAT 98
[2024-01-29] MEDS: Naproxen 500 MG Tablet PO ×2 (01:54→09:56)
[2024-01-29] MEDS: Acetaminophen 500 MG Tablet 1000 MG PO ×2 (03:22→09:55)
--- NOTE | 2024-01-29 07:26 | PCM.PN.OB ---
Subjective Subjective Patient doing well without complaints. Tolerating PO. Ambulating and voiding without difficulty. Feeding well. Denies chest pain, shortness of breath, calf pain/swelling, fevers, chills, lightheadedness. Objective Data Objective Data Vital Signs: Vital Signs Temp Pulse Resp BP Pulse Ox O2 Del Method 97.9 F 79 16 108/83 H 98 Room Air 01/29/24 01:35 01/29/24 01:35 01/29/24 01:35 01/29/24 01:35 01/29/24 01:35 01/29/24 01:35 Oxygen Delivery Method Room Air Weight: 177 lb 6 oz Body Mass Index (BMI) 28.6 Intake & Output: Intake and Output for Last 24 Hours 01/27/24 01/28/24 01/29/24 23:59 23:59 23:59 Intake Total 1724.17 / 1724.17 Output Total 600 / 600 1650 / 1650 Balance 1124.17 / 1124.17 -1650 / -1650 Lab / Micro Data Attestation: I reviewed the patient's lab results. 01/28/24 06:10 ROS Constitutional Constitutional: Reports systems reviewed and no addt'l complaints, except as documented; Denies anorexia or headache(s) Cardiovascular Cardiovascular: Reports systems reviewed and no addt'l complaints, except as documented; Denies dizziness, dyspnea, nausea or tachypnea Respiratory/Chest Respiratory/Chest: Reports systems reviewed and no addt'l complaints, except as documented; Denies cough, dyspnea, shortness of breath at rest or tachypnea Gastrointestinal Gastrointestinal: Reports systems reviewed and no addt'l complaints, except as documented; Denies abdominal pain, constipation or nausea Genitourinary Genitourinary: Reports systems reviewed and no addt'l complaints, except as documented; Denies burning urination, difficulty urinating, dysuria, urinary frequency or urinary incontinence Musculoskeletal Musculoskeletal: Reports systems reviewed and no addt'l complaints, except as documented Integumentary Integumentary: Reports systems reviewed and no addt'l complaints, except as documented Neurologic Neurologic: Reports systems reviewed and no addt'l complaints, except as documented; Denies abnormal speech, dizziness or headache(s) Psychiatric Psychiatric: Reports systems reviewed and no addt'l complaints, except as documented Endocrine Endocrinology: Reports systems reviewed and no addt'l complaints, except as documented Hematologic/Lymphatic Hematologic/Lymphatic: Reports systems reviewed and no addt'l complaints, except as documented Physical Exam Const alert, oriented x3 and no apparent distress Neck full ROM Resp normal respiratory effort, normal air movement and no retractions Effort and Inspection: able to speak in complete sentences and symmetric chest movement GI soft to palpation Bladder / Kidney Exam: bladder normal to palpation Uterus Palpation: uterus fundus firm Extremity normal to inspection and full ROM Psych mental status grossly normal, thought process normal and cooperative Assessment & Plan (1) delivery delivered: COMMENT: LTCS breech oligo Margie Brittni 35 PLAN: s/p LTCS PPD # 2 1. routine post care 2. breast feeding- support given 3. rh positive 4. rubella immune 5. Discharge Home (2) Gestational diabetes: QUALIFIERS: Gestational diabetes mellitus control: diet-controlled Trimester: unspecified trimester Qualified Code(s): O24.410 - Gestational diabetes mellitus in , diet controlled COMMENT: stable pp (3) Rh negative status during : QUALIFIERS: Trimester: unspecified trimester Qualified Code(s): O26.899 - Other specified related conditions, unspecified trimester; Z67.91 - Unspecified blood type, Rh negative COMMENT: Rhogam @28 wks & PRN for bleeding Charges/Coding Multi Select Codes Urinary/Genital Urinary/Genital CPT Codes: No Charge
--- NOTE | 2024-01-29 07:29 | PCM.DC.SUM ---
Providers Date of Admission: 01/27/24 Date of Discharge: 01/29/24 Primary Care Physician: Dr. Adilia Johnson MD Reason For Visit: PRIMAY Diagnosis Discharge Diagnosis (1) delivery delivered: Status: Acute Code(s): O82 - Encounter for delivery without indication Plan: s/p LTCS PPD # 2 1. routine post care 2. breast feeding- support given 3. rh positive 4. rubella immune 5. Discharge Home (2) Gestational diabetes: Status: Acute Code(s): O24.419 - Gestational diabetes mellitus in , unspecified control Qualifiers: Gestational diabetes mellitus control: diet-controlled Trimester: unspecified trimester Qualified Code(s): O24.410 - Gestational diabetes mellitus in , diet controlled (3) Rh negative status during : Status: Acute Code(s): O26.899 - Other specified related conditions, unspecified trimester; Z67.91 - Unspecified blood type, Rh negative Qualifiers: Trimester: unspecified trimester Qualified Code(s): O26.899 - Other specified related conditions, unspecified trimester; Z67.91 - Unspecified blood type, Rh negative Medications at Discharge Home Medications multivitamin 1 tab PO DAILY 10/03/22 ferrous sulfate 325 mg (65 mg iron) tablet (Iron (ferrous sulfate)) 325 mg PO DAILY anemia 01/27/24 naproxen 500 mg tablet 500 mg PO BID PRN PRN Pain #30 tabs 01/27/24 oxycodone-acetaminophen 5 mg-325 mg tablet (Percocet) 1 tab PO Q6H PRN pain 7 days #20 tabs 01/27/24 Hospital Course Operations section Procedures None Summary of Care Provided Minutes Spent on Discharge: 30 Physical Exam Const alert, oriented x3 and no apparent distress Neck full ROM Resp normal respiratory effort, normal air movement and no retractions Effort and Inspection: able to speak in complete sentences and symmetric chest movement GI soft to palpation Inspection: incision intact Bladder / Kidney Exam: bladder normal to palpation Uterus Palpation: uterus fundus Extremity normal to inspection and full ROM Psych mental status grossly normal, thought process normal and cooperative Weight / BMI Weight Weight: 177 lb 6 oz Body Mass Index (BMI) 28.6 ABG / Lab / Microbiology Data 01/28/24 06:10 D/C Instructions Discharge Diet: No restrictions May shower in (days): 0 May resume sexual activity in: 4-6 weeks Weight Bearing Status: Full weight bearing Call your doctor if your incision/area has: Continuous Slow Oozing, Sudden Increased Bleeding, Increased Pain/ Swelling, Increased Redness and Foul Smelling Discharge Call your doctor if you observe: Fever of 101 or Higher and Using more than 1 pad per hour (for 2 hours) Suture Line Care: Avoid Pulling/Pushing and Avoid Pinching/Bending Cleanse incision/area with: Soap & Water and Keep Dressing Clean & Dry Please Follow Up With: Val Matias MD When: Call [phone] to make an appointment for an incision check in 1-2 weeks. Meaningful Use Info Meaningful Use Meaningful Use Diagnoses (Choose all that apply): None applicable Ischemic Stroke Statin Dosing Therapy Reference: STATIN DOSE THERAPY REFERENCE: * Patients > 75 years receive moderate or high dose statin therapy. * Patients 75 years or YOUNGER should receive HIGH intensity statin dose unless contraindicated. You will be required to document reason for non-treatment if statin daily dose does not meet guidelines. HIGH DOSE STATIN THERAPY DAILY Atorvastatin > than or = to 40 mg Rosuvastatin > than or = to 20 mg Amlodipine + Atorvastatin > than or = to 2.5/40 mg Ezetimibe + Simvastatin 10/80 mg Simvastatin 80mg Discharge Plan Admission Admit Date/Time: 01/27/24 07:42 Attending Provider: Val Matias Primary Care Provider: Adilia Johnson Discharge Orders/Prescriptions Prescriptions: New oxycodone-acetaminophen [Percocet] 5-325 mg tablet 1 tab PO Q6H PRN (Reason: pain) 7 Days Qty: 20 0RF naproxen [naproxen] 500 mg tablet 500 mg PO BID PRN PRN (Reason: Pain) Qty: 30 1RF No Action multivitamin Tablet 1 tab PO DAILY ferrous sulfate [Iron (ferrous sulfate)] 325 mg (65 mg iron) tablet 325 mg PO DAILY Referrals / Follow Up: Adilia Johnson MD [Primary Care Provider] - Disposition Disposition (needs filled in before D/C Order can be placed): Home, Self Care Charges/Coding Multi Select Codes Urinary/Genital Urinary/Genital CPT Codes: No Charge
[2024-01-29 08:34] VITALS: BP 128/78; PULSE 83; RESP 18; TEMP 37.4; O2SAT 98
[2024-01-29] MEDS: Senna/Docusate Sodium 1 Tablet PO (09:55)
== END 2024-01-29 10:41 | disposition home or self-care (01) | DRG 787 ==
LOC: WPOUT 07:48 → WP 07:48
PROVIDERS: Admitting Provider Obstetrics & Gynecology; PCP Internal Medicine; Referring Provider Obstetrics & Gynecology; Visit Provider Obstetrics & Gynecology
DX: O32.1XX0 Maternal care for breech presentation, not applicable or unspecified (principal); O41.03X0 Oligohydramnios, third trimester, not applicable or unspecified; O24.420 Gestational diabetes mellitus in childbirth, diet controlled; Z37.0 Single live birth; O26.893 Other specified pregnancy related conditions, third trimester; O99.02 Anemia complicating childbirth; Z67.31 Type AB blood, Rh negative; Z3A.37 37 weeks gestation of pregnancy; Z87.59 Personal history of other complications of pregnancy, childbirth and the puerperium
CPT/HCPCS: 59025; 59050; 82962; 85025; 85027; 85461; 86780; 86850; 86870; 86900; 86901; 87491; 87591; 88307; 90384; 99221; J7120; A4216; G0378; J2405; J2790; J2791

== ENCOUNTER 2024-02-13 05:14 | Day surgery (SDC) | payer OTHER, SELFPAY ==
[2024-02-13] VITALS (12 sets, daily range): BP systolic 106–144; BP diastolic 0–95; PULSE 69–89; RESP 14–16; TEMP 36.2–37.1; O2SAT 93–100; BMI 25.6; BMI 26.6
--- NOTE | 2024-02-13 05:38 | US_ITS ---
INDICATION: ? retained POC -- heavy bleeding -- 01/27/24 EXAMINATION: Ultrasound US Transvaginal Non-OB TECHNIQUE: Transvaginal (for optimal evaluation of the adnexa) pelvic ultrasound was performed. Grayscale, spectral waveform, and color flow Doppler evaluation of the adnexa. COMPARISON: None. FINDINGS: UTERUS: 9.3 cm length. Retroverted. ENDOMETRIUM: Thickened. 2.5 cm maximal thickness. Heterogeneous. No definite vascularity. OVARIES: Right ovary: 3.4 x 1.3 x 2.8 cm. Left ovary: 2.9 x 1.8 x 2.1 cm. The ovaries appear unremarkable. Vascular flow demonstrated. No findings to suggest ovarian torsion. FREE FLUID: None. US/Transvaginal Non- IMPRESSION: Thickened heterogeneous endometrium. Cannot exclude retained products of conception. Electronically Signed: Gely Ashton MD at 7:51 EDT ,
[2024-02-13 06:07] LABS: Absolute Lymphocyte Count 2.41 X10^3/uL (0.83-4.51); Absolute Neutrophil Count 4.4 X10^3/uL (2.0-7.7); Basophil# 0.09 X10^3/uL; Basophil% 1.2 % (0-1); Eosinophil# 0.35 X10^3/uL; Eosinophils% 4.6 % (0-5); Hematocrit 39.5 % (37-47); Hemoglobin 12.3 g/dL (12.0-15.0); Lymphocyte # 2.41 X10^3/ul (0.83-4.51); Lymphocyte % 31.5 % (19-41); Mean Corp Hgb Conc 31.1 g/dL (32-36); Mean Corpuscular Hgb 27.3 pg (27.0-32.0); Mean Corpuscular Volume 87.6 fL (81-99); Mean Platelet Vol. 11.2 fl (6.2-12.0); Monocyte# 0.38 X10^3/uL; NRBC Flagged by Analyzer 0 % (0-5); Neutrophil % 57.4 % (47-70); Platelet Count 232 K/mm3 (150-450); RBC Distribution Width CV 13.4 % (11.6-14.6); RBC Distribution Width SD 43.1 fl (35.1-43.9); Red Blood Count 4.51 M/mm3 (4.2-5.4); White Blood Count 7.7 K/mm3 (4.4-11.0)
[2024-02-13 06:18] LABS: Prothrombin Time (Protime)PT. 13.1 SECONDS (11.7-14.9)
[2024-02-13 06:19] LABS: Partial Thromboplast Time 36.4 Seconds (24.1-36.2)
[2024-02-13 06:23] LABS: Anion Gap 6 (5-15); BUN 18 mg/dL (7-18); BUN/Creat Ratio 28.6 RATIO (10-20); Calcium,Total 9.4 mg/dL (8.5-10.1); Chloride 107 mmol/L (98-107); Creatinine, Serum 0.63 mg/dL (0.55-1.02); EST Glomerular Filtration Rate 115 mL/min (>60); Est Glom Filt Rate - Afr Amer 139 mL/min (>60); Estimated Creatinine Clearance 127.88 ml/min; Glucose 100 mg/dL (74-106); Potassium 3.7 mmol/L (3.5-5.1); Sodium Level 138 mmol/L (136-145)
[2024-02-13 06:28] LABS: hCG Titer Quant., Serum 4 mIU/mL (1-3)
[2024-02-13 06:35] LABS: Lactic Acid 0.7 mmol/L (0.4-1.9)
--- NOTE | 2024-02-13 07:24 | ED.VIS.FEGU ---
HPI HPI - Female History of Present Illness Chief Complaint: Vag Bleeding Informant: patient and spouse/S.O. Narrative Narrative: Patient is a 33-year-old female who is a G3, P3 who underwent a roughly 2 weeks ago. She states that she has been doing well and only had small amount of bleeding/spotting following the . However this morning she had up with her child and after using the bathroom had spontaneous charles of a large amount of blood from her vagina. She denies any history of bleeding disorder or blood thinner use. She states she contacted [facility] POSITION SYSTEM TECHNICIAN and they advised her to come to the hospital for evaluation. [facility] Medical History Anemia Generalized anxiety disorder Glucose intolerance (impaired glucose tolerance) History of anemia History of gestational diabetes Oligohydramnios Oligohydramnios in third trimester Home Medications multivitamin 1 tab PO DAILY 10/03/22 [History Last Taken 01/26/24] naproxen 500 mg tablet 500 mg PO BID PRN PRN Pain #30 tabs 01/27/24 [Rx Last Taken Unknown] oxycodone-acetaminophen 5 mg-325 mg tablet (Percocet) 1 tab PO Q6H PRN pain 7 days #20 tabs 01/27/24 [Rx Last Taken Unknown] Allergy/AdvReac Type Severity Reaction Status Date / Time amoxicillin Allergy Severe Hives Verified 02/13/24 05:16 Family History Father Myocardial infarction Other Alcoholism in family Anemia Diabetes Hypertension Social History adopted: No household members: family housing: house number of children: 2 current occupational status: employed Smoking Status: Never smoker second hand exposure: No alcohol intake: never substance use type: does not use caffeine: Yes what type of physical activity do you participate in: walking seatbelt use: always do you feel safe at home: Yes additional social history: 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 [employer] ROS ED Constitutional Constitutional ED: Denies chills or fever(s) Eyes Eyes: Denies blurry vision, change in vision or diplopia ENT ENT ED: Denies sore throat Cardiovascular Cardiovascular: Denies chest pain Respiratory/Chest Respiratory/Chest: Denies cough or dyspnea Gastrointestinal Gastrointestinal: Reports abdominal pain; Denies diarrhea, nausea or vomiting Genitourinary Genitourinary ED: Reports other Details: Positive vaginal bleeding ; Denies dysuria or urinary frequency Musculoskeletal Musculoskeletal: Reports other Details: Positive back pain Integumentary Denies rash Neurologic Neurologic: Denies headache(s), paresthesias or weakness Psychiatric Psychiatric: Reports anxiety Hematologic/Lymphatic Hematologic/Lymphatic: Denies easy bleeding or easy bruising EXAM Physical Exam Const Vital Signs: 02/13/24 05:15 02/13/24 05:53 02/13/24 07:15 Temperature 98.7 F Temperature Source Oral Pulse Rate 89 77 Respiratory Rate 16 16 Blood Pressure 144/91 H 122/90 H 107/64 Blood Pressure Mean 108 100 78 Pulse Ox 98 99 Oxygen Delivery Method Room Air Room Air Positive well nourished and well developed General Appearance ED: well developed; Negative for pallor HEENT HEENT Narrative: Normocephalic atraumatic Eyes PERRL and EOMs intact bilaterally General Eye ED: Negative for pale conjunctiva Neck supple Neck Narrative: No nuchal rigidity or meningeal signs Resp normal respiratory effort and clear to auscultation bilaterally Cardio regular rate and regular rhythm Rate: other Other Details: Heart is regular rate and rhythm without murmurs rubs or gallops Radial and carotid pulses are equal and symmetric GI normal to inspection, nondistended, normoactive bowel sounds, soft to palpation, non-tender, non-distended and no masses GI Narrative: No voluntary guarding or rigidity No pulsatile mass or fluid wave Horizontal lower abdominal incision consistent with is clean dry and intact without secondary changes to suggest infection Auscultation: normoactive bowel sounds Palpation: soft Narrative: There is small amount of dried blood along the external genitalia. Speculum exam shows a scant amount of mucousy dark brown blood within the vaginal vault. No active bleeding noted. Cervical os appears closed Extremity normal to inspection and full ROM Extremity Narrative: Negative Homans' sign bilaterally Neuro oriented x3, CN's II-XII intact bilaterally and no sensory deficits noted Sensorium / Orientation: alert Motor Exam: strength 5/5 throughout Psych Psych Narrative: Patient has a nervous/anxious affect Skin no rashes or lesions noted Skin Narrative: Capillary refill is less than 3 seconds General Skin Exam: Negative for jaundice or pallor MDM MDM MDM Narrative Medical decision making narrative: Patient presented to the ER mildly hypertensive but otherwise with stable vitals. She reported a gush of blood per vagina roughly 2 weeks . Differential diagnosis is for acute blood loss anemia versus retained products of conception and secondary to this basic blood work and a transvaginal ultrasound ordered. White count is normal H&H is stable there is no thrombocytopenia and lactic acid is normal as well. Transvaginal ultrasound showed a heterogeneous uterus. Patient is hemodynamically stable and has overall normal labs with a nonspecific ultrasound so [employer]ITION SYSTEM TECHNICIAN was contacted. G[employer]ITION SYSTEM TECHNICIAN reviewed the ultrasound images and evaluated the patient in the ER. After doing so they do have concern that patient may have a small amount of retained product and therefore recommend a suction D&C later today. Therefore patient will be kept in the ER until she is taken to the surgical suite for her suction D&C by [employer] TECHNICIAN History & Record Review Discussion w/independent historian: Patient and Significant other Lab Data Attestation: I reviewed the patient's lab results. Labs: Laboratory Results - last 24 hr 02/13/24 05:45 WBC 7.7 RBC 4.51 Hgb 12.3 Hct 39.5 MCV 87.6 MCH 27.3 MCHC 31.1 L RDW Std Deviation 43.1 RDW Coeff of Christine 13.4 Plt Count 232 MPV 11.2 Immature Gran % (Auto) 0.300 Neut % (Auto) 57.4 Lymph % (Auto) 31.5 Brooke % (Auto) 5.0 Eos % (Auto) 4.6 Baso % (Auto) 1.2 H Absolute Neuts (auto) 4.4 Absolute Lymphs (auto) 2.41 Nucleated RBC % 0 PT 13.1 INR 1.0 APTT 36.4 H Sodium 138 Potassium 3.7 Chloride 107 Carbon Dioxide 25.0 Anion Gap 6 BUN 18 Creatinine 0.63 Estim Creat Clear Calc 127.88 Est GFR (MDRD) Af Amer 139 Est GFR (MDRD) Non-Af 115 BUN/Creatinine Ratio 28.6 H Glucose 100 Lactic Acid 0.7 Calcium 9.4 HCG, Quant 4 Radiography Diagnostic Testing: Clinical Impression(s) from Imaging Studies Transvaginal US 02/13/24 05:38 IMPRESSION: Thickened heterogeneous endometrium. Cannot exclude retained products of conception. Electronically Signed: Gely Ashton MD at 7:51 EDT , Discharge Plan Triage Chief Complaint: Vag Bleeding ED Provider: Rocky Miller Dx/Rx/DC Orders Clinical Impression: hemorrhage of vagina, Retained products of conception Prescriptions: No Action multivitamin Tablet 1 tab PO DAILY oxycodone-acetaminophen [Percocet] 5-325 mg tablet 1 tab PO Q6H PRN (Reason: pain) 7 Days Qty: 20 0RF naproxen [naproxen] 500 mg tablet 500 mg PO BID PRN PRN (Reason: Pain) Qty: 30 1RF Primary Care Provider: Adilia Johnson Referrals: Adilia Johnson MD [Primary Care Provider] - Disposition Disposition: Acute Care Hospital [facility] [place]
--- NOTE | 2024-02-13 09:02 | PCM.HP.OB ---
[facility] - General General Date of Admission: 02/13/24 Chief Complaint: heavy vaginal bleeding following section. HPI Narrative TIM MEDINA, is a 33 y/o who presents to [facility] ER for vaginal bleeding. She is status post csection for breech presentation and oligohydramnios and had stopped vaginally bleeding for about a week. Yesterday she started to have cramps but thought she needs to pass gas, woke up around 4am to feed baby and felt gush of blood, soaked underwear and pad, called [facility] and told to come to ed. She denies dizziness of shortness of breath. Ultrasound is concerning for retained products of conception. We discussed conservative therapy with cytotec or surgical management involving a gentle suction curettage and she would like to proceed with the D&C. Her hg is 12 and her HCG level is 4. She had not had anything to eat or drink since prior to midnight last night. Ultrasound is as follows: FINDINGS: UTERUS: 9.3 cm length. Retroverted. ENDOMETRIUM: Thickened. 2.5 cm maximal thickness. Heterogeneous. No definite vascularity. OVARIES: Right ovary: 3.4 x 1.3 x 2.8 cm. Left ovary: 2.9 x 1.8 x 2.1 cm. The ovaries appear unremarkable. Vascular flow demonstrated. No findings to suggest ovarian torsion. FREE FLUID: None. US/Transvaginal Non- IMPRESSION: Thickened heterogeneous endometrium. Cannot exclude retained products of conception. [facility] Medical History Anemia Generalized anxiety disorder Glucose intolerance (impaired glucose tolerance) History of anemia History of gestational diabetes Oligohydramnios Oligohydramnios in third trimester Home Medications multivitamin 1 tab PO DAILY 10/03/22 [History Last Taken 01/26/24] naproxen 500 mg tablet 500 mg PO BID PRN PRN Pain #30 tabs 01/27/24 [Rx Last Taken Unknown] oxycodone-acetaminophen 5 mg-325 mg tablet (Percocet) 1 tab PO Q6H PRN pain 7 days #20 tabs 01/27/24 [Rx Last Taken Unknown] Allergy/AdvReac Type Severity Reaction Status Date / Time amoxicillin Allergy Severe Hives Verified 02/13/24 05:16 Family History Father Myocardial infarction Other Alcoholism in family Anemia Diabetes Hypertension Social History adopted: No household members: family housing: house number of children: 2 current occupational status: employed Smoking Status: Never smoker second hand exposure: No alcohol intake: never substance use type: does not use caffeine: Yes what type of physical activity do you participate in: walking seatbelt use: always do you feel safe at home: Yes additional social history: 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 Date Name GA/Weeks Outcome Route Bth Weight Infant Gen Labor Lgth Anesthesia Del Locatn Provider FOB 12/22/18 ALLY 40 live - full term 7lbs 6oz Female 4.5 hours epidural [facility] 06/20/21 Tyler 39 live - full term Male epidural [facility] 01/27/24 Margie 36 live - full term Female spinal [facility] Delivery Date: 12/22/18 Last Updated by: Wendy Loo GDMA; 2nd degree laceration; uterine atony Delivery Date: 06/20/21 Last Updated by: Wendy Loo GDM Delivery Date: 01/27/24 Last Updated by: Shannan Love oligo 36 LTCS breech SM girl ROS Constitutional Constitutional: Denies change in weight, fatigue, fever(s), headache(s), poor appetite or weakness Eyes Eyes: Denies blurry vision, change in vision, seeing flashes or spots in vision ENT HEENT: Denies dizziness, headache(s), loss taste/smell or sore throat Cardiovascular Cardiovascular: Denies chest pain, dizziness, dyspnea, irregular heart rhythm, leg edema, palpitations, rapid heart rate or vomiting Respiratory/Chest Respiratory/Chest: Denies chest tightness, cough, dyspnea or breast pain Gastrointestinal Gastrointestinal: Denies abdominal pain, anorexia, constipation, diarrhea, hemorrhoids, vomiting or weight changes Genitourinary Genitourinary: Denies dysuria, flank pain, genital lesions, genital pain, urinary frequency or urinary urgency Musculoskeletal Musculoskeletal: Denies back pain, difficulty walking, joint pain, limited range of motion, muscle cramps or numbness Integumentary Integumentary: Denies lesions or unusual bruising Neurologic Neurologic: Denies abnormal movements, abnormal speech, dizziness, numbness, seizure-like activity or syncope Psychiatric Psychiatric: Denies anxiety, behavioral changes, change in appetite, change in libido, cognitive impairment, confusion, depression, difficulty concentrating, hallucinations or suicidal thoughts Endocrine Endocrinology: Denies excessive sweating, polydipsia or polyuria Hematologic/Lymphatic Hematologic/Lymphatic: Denies easy bleeding, easy bruising or lymphadenopathy Allergic/Immunologic Allergic/Immunologic: Denies itchy eyes, lip swelling, seasonal rhinorrhea, rhinitis, throat swelling, tongue swelling, eczemia, wheezing or asthma Vital Signs Vital Signs Vital Signs: 02/13/24 05:15 02/13/24 05:53 02/13/24 07:15 Temperature 98.7 F Temperature Source Oral Pulse Rate 89 77 Respiratory Rate 16 16 Blood Pressure 144/91 H 122/90 H 107/64 Blood Pressure Mean 108 100 78 Pulse Ox 98 99 Oxygen Delivery Method Room Air Room Air Weight Weight: 158 lb 11.725 oz Body Mass Index (BMI) 25.6 Physical Exam Const alert, oriented x3, no apparent distress and healthy appearing General Appearance: cooperative; Negative for anxious HEENT normocephalic Face and Sinus: normal facial exam Chest Chest: abnormal inspection of the chest Resp normal respiratory effort Effort and Inspection: able to speak in complete sentences Cardio regular rate GI soft to palpation and non-tender Inspection: gravid Palpation: soft; Negative for tender Back/Spine no CVA tenderness Extremity normal to inspection, full ROM and no clubbing, cyanosis or edema General Extremity: Negative for calf tenderness or edema Skin Lesions: no lesions Rashes: no rashes Psych mental status grossly normal Labs Labs Labs: Blood Type AB NEGATIVE Antibody Screen POSITIVE Hct 39.5 % (37-47) Hgb 12.3 g/dL (12.0-15.0) Obstetrics Ultrasound Syphilis Total Ab Non-reactive Rubella IgG Antibody Reactive (Nonreactive) Hep Bs Antigen Non-Reactive (Nonreactive) Hepatitis C Antibody Non-Reactive (Nonreactive) Chlamydia DNA (VERN) Negative (Negative) N.gonorrhoeae DNA (VERN) Negative (Negative) HIV 1&2 Antibody Non-Reactive (Nonreactive) Glucose 1 Hr 50 gm 152 mg/dL (70-140) H Rhogam given: Yes Assessment & Plan (1) Retained products of conception: PLAN: After discussing the patient's diagnosis and treatment plan options, patient wishes to proceed with surgical management. I have discussed with the patient the risks, benefits, and alternatives of the procedure which include but are not limited to risks of anesthesia, bleeding, infection, possible damage to bowel, bladder, or surrounding vasculature which could lead to additional surgery to evaluate any complications. Patient agrees to procedure and wishes to proceed. ACOG/uptodate references given for additional information regarding procedure. (2) hemorrhage of vagina: (3) delivery delivered: COMMENT: LTCS breech oligo Margie Elkins 35
[2024-02-13] MEDS: 0.9% Normal Saline (1000mL) 1,000 ML 15 ML IV (09:35)
--- NOTE | 2024-02-13 09:48 | NURSING ---
patient in ac 19 awaiting surgery, [facility]
--- NOTE | 2024-02-13 11:45 | EMB_PTH ---
PATIENT: TMI MEDINA LOC: [facility] [place] U#:[id number] AGE/SX: 33/F ROOM: RE02/13/[address]: Dr. Chantale Greenberg DO : 1990 BED: DIS: 02/13/2024 SPEC #: [id number] RECD: 02/13/24 13:52 STATUS: LOLIS PHANI #: [id number] JJ: 02/13/24 11:[address]: Chantale Greenberg DEPT: SURGICAL PATHOLOGY RECD BY: Lori Sidhu ENTERED: 02/16/24 07:20 SP TYPE: ENDOM BX/C HENRRY DR: Dr. Adilia Johnson MD Tissues: Endometrium, NOS Procedures: Surgery Specimen Level IV HEADER OPERATION: D&C, retaining products PRE-OP DIAGNOSIS: Retained products of conception, hemorrhage of vagina, delivery TISSUE SUBMITTED: Endometrial curettings MICROSCOPIC DIAGNOSIS Endometrium, Curettings: Mildly disordered transition endometrium with extensive glandular and stromal breakdown. Chronic endometritis. Rare fragments of benign superficial endocervix. Fragments of benign myometrium with changes suggestive of adenomyosis. See comment. AM/mr 02/17/24 COMMENT Case has been reviewed in consultation with Dr. Ovalle who concurs with the above diagnosis. IDC:SJ MICROSCOPIC DESCRIPTION Slides are reviewed. GROSS DESCRIPTION Received in fixative is one container labeled with the patient's name and designated Endometrial curettings. The specimen consists of multiple irregular fragments of light peres soft tissue and mixed with blood clots measuring in aggregate 15.0 x 3.0 x 0.2cm. The specimen is totally submitted in 13 cassettes. AM/mr 02/16/2024 TC:3 CPT:03614
--- NOTE | 2024-02-13 12:35 | DCINST_ITS ---
Discharge Instructions Diet Discharge Diet: No restrictions Activity Discharge Activity: Return to Normal Activity, May Shower and May Take a Tub Bath (after 1 week) May resume sexual activity in: 1-2 weeks Weight Bearing Status: Weight bearing as tolerated Lifting Restrictions: none Dressing / Incision Call your doctor if you observe: Fever of 101 or Higher, Using more than 1 pad per hour, Shortness of breath and Uncontrolled pain Follow Up Care Please Follow Up With: Chantale Greenberg DO When: Call [phone] to schedule appointment. Test Results: Test results from this visit will be discussed in further detail at your follow- up appointment, if applicable. Discharge Plan Admission Attending Provider: Chantale Greenberg Primary Care Provider: Adilia Johnson Discharge Orders/Prescriptions Prescriptions: No Action multivitamin Tablet 1 tab PO DAILY oxycodone-acetaminophen [Percocet] 5-325 mg tablet 1 tab PO Q6H PRN (Reason: pain) 7 Days Qty: 20 0RF Patient Comments: patient states she hasnt needed naproxen [naproxen] 500 mg tablet 500 mg PO BID PRN PRN (Reason: Pain) Qty: 30 1RF Patient Comments: patient states she hasnt needed Referrals / Follow Up: Adilia Johnson MD [Primary Care Provider] - Disposition Disposition (needs filled in before D/C Order can be placed): Home, Self Care
--- NOTE | 2024-02-13 13:10 | PCM.OPRPT ---
Problems Associated Problem List Diagnoses (1) Retained products of conception: Report of Operation Date of Procedure: 02/13/24 Pre-Operative Diagnosis: Suspected retained products of conception Post-Operative Diagnosis: Suspected retained products of conception Surgery/Procedure Performed:: Dilation and curettage under ultrasound guidance Surgeon: Chantale Greenberg marine meteorologist: None Type of Anesthesia: MAC Specimen's removed: endometrial curetting's Estimated Blood Loss (mL): 30cc Description of Procedure: The patient was brought to the operating room where MAC anesthesia was administered and found to be adequate. She was prepped and draped in the usual sterile fashion. Her bladder was drained of 150cc of urine. A weighted speculum was placed in the vagina and the anterior lip of the cervix was grasped with a single toothed tenaculum. The Uterus sounded to 11 cm and under ultrasound guidance, a sharp curettage was performed until a thin endometrial lining was seen. Multiple passes were needed to achieve this and for that antibiotics were given. The uterus was somewhat boggy at the end of this. Methergine IM 0.2mcg was ordered. The patient tolerated the procedure well. Sponge, lap, and needle counts were correct x 2. Complications none Admit VTE Documentation VTE Present on Admission: Yes VTE Mechan Device Prophylaxis: SCD's VTE Pharm Prophylaxis ordered?: No Multi Select Codes Urinary/Genital Urinary/Genital CPT Codes: 01557 Curettage,
[2024-02-13] MEDS: Methylergonovine 0.2 MG/ML Ampul IM (13:15)
[2024-02-13] MEDS: Clindamycin 900 MG/50 ML BAG 75 MG IV (13:31)
[2024-02-13] MEDS: Gentamicin IV 300 MG in Dextrose 5%-Water (50mL Bag) 50 ML 115 MG IVPB (14:17)
[2024-02-13] MEDS: Acetaminophen 500 MG Tablet 1000 MG PO (14:23)
--- NOTE | 2024-02-13 14:34 | SUR.PHASEII ---
This nurse called [facility] on behalf of patient. spoke with marisa mendosa. pt does not need to be seen on friday for csection incision check. pt to schedule f/u from d&c that occured today. on visual assessment, c section incision is healing well. well approximated, no redness, no inflammation. patient states that it is tingly.
== END 2024-02-13 15:35 | disposition home or self-care (01) ==
LOC: ED 08:33 → SDC 08:37 → ACINP 08:38
PROVIDERS: Emergency Provider Emergency Medicine; PCP Internal Medicine; Visit Provider Obstetrics & Gynecology
PROC: (CPT 59160; principal; 2024-02-13 11:30)
DX: O86.12 Endometritis following delivery (principal); O99.345 Other mental disorders complicating the puerperium; F41.9 Anxiety disorder, unspecified
CPT/HCPCS: 59160; 00940; 76830; 80048; 83605; 84702; 85025; 85610; 85730; 88305; 99284; J7030; J7120; J2405

== ENCOUNTER → 2024-04-14 | Outpatient (CLI) | payer OTHER, SELFPAY ==
[2024-04-14 12:23] LABS: Absolute Lymphocyte Count 2.06 X10^3/uL (0.83-4.51); Absolute Neutrophil Count 5.6 X10^3/uL (2.0-7.7); Basophil# 0.06 X10^3/uL; Basophil% 0.7 % (0-1); Eosinophil# 0.28 X10^3/uL; Eosinophils% 3.3 % (0-5); Hematocrit 37.8 % (37-47); Hemoglobin 12.3 g/dL (12.0-15.0); Lymphocyte # 2.06 X10^3/ul (0.83-4.51); Lymphocyte % 24.3 % (19-41); Mean Corp Hgb Conc 32.5 g/dL (32-36); Mean Corpuscular Hgb 26.9 pg (27.0-32.0); Mean Corpuscular Volume 82.7 fL (81-99); Mean Platelet Vol. 11.6 fl (6.2-12.0); Monocyte# 0.43 X10^3/uL; Monocyte% 5.1 % (0-10); NRBC Flagged by Analyzer 0 % (0-5); Neutrophil # 5.63 X10^3/uL (2.7-7.7); Neutrophil % 66.2 % (47-70); Platelet Count 241 K/mm3 (150-450); RBC Distribution Width CV 14.2 % (11.6-14.6); RBC Distribution Width SD 42.6 fl (35.1-43.9); Red Blood Count 4.57 M/mm3 (4.2-5.4); White Blood Count 8.5 K/mm3 (4.4-11.0)
[2024-04-14 12:32] LABS: ALB/GLOB Ratio 1.1 RATIO (0.9-2.4); AST(SGOT) 42 U/L (15-37); Alanine Aminotransfer ALT/SGPT 79 U/L (13-56); Albumin, Serum 4.1 g/dL (3.2-5.0); Alkaline Phosphatase 55 U/L (45-117); Anion Gap 7 (5-15); BUN 15 mg/dL (7-18); BUN/Creat Ratio 19.5 RATIO (10-20); Calcium,Total 9.4 mg/dL (8.5-10.1); Chloride 105 mmol/L (98-107); Cholesterol 231 mg/dL (200); Creatinine, Serum 0.77 mg/dL (0.55-1.02); EST Glomerular Filtration Rate 91 mL/min (>60); Est Glom Filt Rate - Afr Amer 110 mL/min (>60); Globulin 3.9 g/dL (2.2-4.2); Glucose 85 mg/dL (74-106); High Density Lipoprotein 69 mg/dL; Potassium 4.1 mmol/L (3.5-5.1); Sodium Level 137 mmol/L (136-145); Triglycerides 98 mg/dL; Very Low Density Lipoprotein 20 mg/dL (5-40)
== END | disposition home or self-care (01) ==
LOC: BIMLAB 10:36
PROVIDERS: PCP Internal Medicine; Referring Provider Internal Medicine; Visit Provider Internal Medicine
DX: Z00.00 Encounter for general adult medical examination without abnormal findings (principal); D64.9 Anemia, unspecified
CPT/HCPCS: 36415; 80053; 80061; 85025

== ENCOUNTER → 2025-05-06 | Outpatient (CLI) | payer OTHER, SELFPAY ==
[2025-05-11 19:08] LABS: HPV APTIMA, High Risk Negative (Negative)
== END | disposition home or self-care (01) ==
LOC: LABSPEC 13:25
PROVIDERS: PCP Internal Medicine; Referring Provider Obstetrics & Gynecology; Visit Provider Obstetrics & Gynecology
DX: Z12.4 Encounter for screening for malignant neoplasm of cervix (principal)
CPT/HCPCS: 87624; 88175; G0145